=== PATIENT | female | born 1955 | race Caucasian/White ===

== ENCOUNTER 2017-02-25 10:14 | Emergency (ER) | payer BC ==
[2017-02-25 10:20] VITALS: BP 116/70
--- NOTE | 2017-02-25 11:41 | UC ---
Abdominal Pain Female HPI - HPI Summary HPI Summary: HISTORY OF DIVERTICULITIS DIAGNOSED ONE YEAR AGO. LAST TWO DAYS HAS HAD INTERMITTENT LLQ LUQ PAIN. NO DIARRHEA. NO BLOOD IN STOOL. NO VOMITING, BUT HAS HAD NAUSEA. - History of Current Complaint Chief Complaint: UCAbdominalPain Stated Complaint: STOMACH ISSUES Time Seen by Provider: 02/25/17 10:53 Hx Obtained From: Patient Onset/Duration: Gradual Onset, Lasting Days, Still Present Severity Initially: Moderate Severity Currently: Mild Pain Intensity: 7 Pain Scale Used: 0-10 Numeric Location: Discrete At: LUQ, Discrete At: LLQ Radiates: No Radiates to: LLQ Character: Cramping, Dull, Sharp Aggravating Factor(s): Nothing Alleviating Factor(s): Nothing, Bowel Movement Associated Signs and Symptoms: Positive: Negative - Risk Factors Ectopic Risk Factor: Negative Allergies/Adverse Reactions: Allergies Allergy/AdvReac Type Severity Reaction Status Date / Time No Known Allergies Allergy Verified 02/25/17 10:20 Home Medications: Home Medications Alprazolam [Xanax] 0.5 mg PO TID PRN 02/25/17 [History Confirmed 02/25/17] Diltiazem HCl [Dilt-Xr] 120 mg PO DAILY 02/25/17 [History Confirmed 02/25/17] Trazodone HCl 150 mg PO DAILY 02/25/17 [History Confirmed 02/25/17] PMH/Surg Hx/FS Hx/Imm Hx Previously Healthy: Yes - Surgical History Surgical History: Yes Surgery Procedure, Year, and Place: lumpectomy, hysterectomy - Family History Known Family History: Negative: Diabetes - Social History Occupation: Employed Full-time Lives: With Family Alcohol Use: None Substance Use Type: None Smoking Status (MU): Light Every Day Tobacco Smoker Type: Cigarettes Amount Used/How Often: 5 cig/day Length of Time of Smoking/Using Tobacco: 40 Have You Smoked in the Last Year: No Review of Systems Constitutional: Negative Skin: Negative Eyes: Negative ENT: Negative Respiratory: Negative Cardiovascular: Negative Gastrointestinal: Abdominal Pain, Nausea Genitourinary: Negative Motor: Negative Neurovascular: Negative Musculoskeletal: Negative Neurological: Negative Psychological: Negative All Other Systems Reviewed And Are Negative: Yes Physical Exam Triage Information Reviewed: Yes Appearance: Well-Appearing, No Pain Distress, Well-Nourished Vital Signs: Initial Vital Signs Temp 99.8 F 08/13/17 10:15 Pulse 83 02/25/17 10:15 Resp 18 02/25/17 10:15 BP 116/70 02/25/17 10:15 Pulse Ox 97 02/25/17 10:15 Vital Signs Reviewed: Yes Eye Exam: Normal ENT Exam: Normal ENT: Positive: Normal ENT inspection, Hearing grossly normal, Pharynx normal, TMs normal Dental Exam: Normal Neck exam: Normal Neck: Positive: Supple, Nontender, No Lymphadenopathy Respiratory Exam: Normal Respiratory: Positive: Chest non-tender, Lungs clear, Normal breath sounds Cardiovascular Exam: Normal Cardiovascular: Positive: RRR, No Murmur, Pulses Normal Abdomen Description: Positive: No Organomegaly, Soft. Negative: Nontender - LLQ , McBurney's Point Tenderness Bowel Sounds: Positive: Present Musculoskeletal Exam: Normal Neurological Exam: Normal Psychological Exam: Normal Psychological: Positive: Normal Response To Family Skin Exam: Normal Abd Pain Female Course/Dx - Differential Dx/Diagnosis Differential Diagnosis: Appendicitis, Bowel Obstruction, Constipation, Diverticulitis, Ovarian Cyst, Pancreatitis, Urinary Tract Infection Provider Diagnoses: DIVERTICULITIS Discharge - Discharge Plan Condition: Stable Disposition: HOME Prescriptions: Ciprofloxacin TAB* [Cipro 500 MG TAB*] 500 mg PO BID #14 tab Metronidazole [Flagyl 500 MG TAB] 500 mg PO TID #21 tab Patient Education Materials: Diverticulitis (ED) Referrals: [facility] [Outside] Caity Martinez PA [Primary Care Provider] -
== END 2017-02-25 11:20 | disposition home or self-care (01) ==
LOC: UCEAST 10:14
DX: K57.92 Diverticulitis of intestine, part unspecified, without perforation or abscess without bleeding (principal); Z90.710 Acquired absence of both cervix and uterus; Z87.891 Personal history of nicotine dependence
CPT/HCPCS: 81003; 99212; G0463

== ENCOUNTER 2018-02-22 16:11 | Emergency (ER) | payer BC ==
[2018-02-22 16:25] VITALS: BP 131/81
--- NOTE | 2018-02-22 16:53 | UC ---
Respiratory Complaint HPI - HPI Summary HPI Summary: 62 yo female presents with fever, sore throat, dysphagia, and cough for the last 5 days. She tells me that she returned for [place] on 02/17. Went to [address] [place] [address] on 02/18 for sore throat and cough. Per pt - they did a CXR which was normal and rx'd her Augmentin and cough syrup. She has been taking the augmentin BID since 02/18 and has had worsening symptoms. She is still febrile and reports increased pain in her throat. Has trouble swallowing her saliva due to pain. Not eating due to pain. She has not taken anything OTC for her fevers or discomfort. Denies SOB, chest pain, abdominal pain, n/v/d/c. 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 Onset/Duration: Gradual Onset Severity Initially: Severe Severity Currently: Severe Pain Intensity: 9 Pain Scale Used: 0-10 Numeric - Allergies/Home Medications Allergies/Adverse Reactions: Allergies Allergy/AdvReac Type Severity Reaction Status Date / Time No Known Allergies Allergy Verified 02/22/18 18:14 Home Medications: Home Medications Amoxicillin/Clavulanate TAB* [Augmentin TAB 875*] 875 mg PO BID 02/22/18 [ History Confirmed 02/22/18] Cholecalciferol (Vitamin D3) [Vitamin D3] 1,000 unit PO DAILY 02/22/18 [History Confirmed 02/22/18] PMH/Surg Hx/FS Hx/Imm Hx Cardiovascular History: Hypertension Psychological History: Anxiety - Surgical History Surgical History: Yes Surgery Procedure, Year, and Place: lumpectomy, hysterectomy - Family History Known Family History: Negative: Diabetes - Social History Lives: With Family Alcohol Use: Rare Substance Use Type: None Smoking Status (MU): Current Some Day Smoker Type: Cigarettes Amount Used/How Often: 5 cig/day Length of Time of Smoking/Using Tobacco: 40 Have You Smoked in the Last Year: No Review of Systems Constitutional: Fever Skin: Negative Eyes: Negative ENT: Sore Throat Respiratory: Cough Cardiovascular: Negative Gastrointestinal: Negative Neurovascular: Negative Neurological: Negative Psychological: Negative All Other Systems Reviewed And Are Negative: Yes Physical Exam - Summary Physical Exam Summary: GENERAL: Moderately ill appearing. SKIN: No rashes, sores, lesions, or open wounds. HEENT: Head: AT/NC Eyes: Conjunctiva clear without inflammation or discharge. Ears: Hearing grossly normal. TMs intact, no bulging, erythema, or edema. Nose: Nasal mucosa pink and moist. NTTP maxillary and frontal sinus. Throat: Posterior oropharynx moderate erythema and 2+ tonsillar enlargement. Severe coated yellow/white exudate on b/l tonsils. Uvula midline. No hoarse voice or muffled voice. NECK: Supple. Severe TTP about neck CHEST: Decreased breath sounds throughout. No accessory muscle use. Breathing comfortably and in no distress. CV: RRR. Without m/r/g. Pulses intact. Brisk cap refill. NEURO: Alert. CN II-XII grossly intact. PSYCH: Age appropriate behavior. Triage Information Reviewed: Yes Vital Signs: Initial Vital Signs Temp 101.5 F 02/22/18 16:20 Pulse 95 02/22/18 16:20 Resp 18 02/22/18 16:20 BP 131/81 02/22/18 16:20 Pulse Ox 97 02/22/18 16:20 Vital Signs Reviewed: Yes Diagnostic Evaluation - Laboratory O2 Sat by Pulse Oximetry: 97 Respiratory Course/Dx - Course Course Of Treatment: Given pt's fever, tachycardia, pain out of proportion to exam, and worsening symptoms despite appropriate outpatient therapy - I have advised her to go to the ED for further evaluation and treatment. She was agreeable to this and declined ambulance transfer - her will drive her. There is a suspicion for SIRS vs soft tissue neck abscess vs severe exudative pharyngitis. - Differential Dx/Diagnosis Provider Diagnoses: Fever. Sore throat Discharge - Sign-Out/Discharge Documenting (check all that apply): Patient Departure - Discharge Plan Condition: Stable Disposition: HOME-RECOMMEND TO ED Referrals: Andrew GHOSH,Asher Quevedo [Primary Care Provider] - Additional Instructions: Please go to the ER for further evaluation of your worsening sore throat despite antibiotic therapy - Billing Disposition and Condition Condition: STABLE Disposition: Home-Recommend to ED
--- NOTE | 2018-02-25 18:08 | UC ---
- Progress Note Progress Note: 02/25/2018 Pt seen on 02/22/2018 and Sent to ER to r/o tonsillar abscess. Pt D/c home w/ pain medication and no ABx. Throat culture returned Positive for Pseudomona Aeroginosa. Please call back Pt and inform Pt that Rx for Ciprofloxacin PO was sent to her pharmacy. Thank you Eryn Hong PA-C Discharge - Sign-Out/Discharge Documenting (check all that apply): Patient Departure - D/c home - Discharge Plan Condition: Stable Disposition: HOME-RECOMMEND TO ED Referrals: Andrew GHOSH,Asher Quevedo [Primary Care Provider] - Additional Instructions: Please go to the ER for further evaluation of your worsening sore throat despite antibiotic therapy - Billing Disposition and Condition Condition: STABLE Disposition: Home-Recommend to ED
== END 2018-02-22 17:10 | disposition home health service (06) ==
LOC: UCEAST 16:11
DX: R50.9 Fever, unspecified (principal); J02.9 Acute pharyngitis, unspecified; Z72.0 Tobacco use
CPT/HCPCS: 87070; 87077; 87186; 99212; G0463

== ENCOUNTER 2018-02-22 17:33 | Emergency (ER) | payer BC ==
[2018-02-22] MEDS ORDERED: Ketorolac INJ* 15 MG/ML 1 ML VIAL IV ONE (19:18)
[2018-02-22] MEDS ORDERED: NS 0.9% 1000 ML*IV.FLUID IV ONE (19:18)
--- NOTE | 2018-02-22 19:18 | ED ---
HPI Febrile Illness - HPI Summary HPI Summary: This is scrfernandoe, Gustavo Diez, documenting for attending Dr. Hola MD. A 62 y/o F presents to ED with fever onset one week ago. Pt flew on 02/18/18. She was seen at [facility] and was given Augmentin, but has not improved. Started ABX on 02/17. Associated sx: dysphagia, drooling, GONZALEZ, neck pain, throat pain, swollen lymph nodes, congestion which as resolved, dyspnea with exertion, R flank pain described as shooting. Pt hasn't been eating much due to the pain. She ate soup yesterday. Denies abd pain, CP. Pt states she is healthy otherwise, pt takes Lexapro, Trazodone, Diazepam. I, Dr. Simental, personally performed the services described in this documentation as scribed in my presence and it is both accurate and complete. 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 Onset/Duration: Started Days Ago - approx one week, Still Present Timing: Constant Initial Severity: Moderate Current Severity: Severe Pain Intensity: 10 Pain Scale Used: 0-10 Numeric Aggravating Factors: Other: - exertion Associated Signs and Symptoms: Headache, SOB - dyspnea, Stiff Neck - neck pain, Other: - dysphagia, drooling, throat pain, swollen lymph nodes, congestion, R flank pain - Allergy/Home Medications Allergies/Adverse Reactions: Allergies Allergy/AdvReac Type Severity Reaction Status Date / Time No Known Allergies Allergy Verified 02/23/18 00:01 PMH/Surg Hx/FS Hx/Imm Hx Previously Healthy: Yes Cardiovascular History: Denies: Hx Hypertension - pt denies Respiratory History: Denies: Hx Chronic Obstructive Pulmonary Disease (COPD) Opthamlomology History: Denies: Hx Legally Blind EENT History: Denies: Hx Deafness - Cancer History Hx Chemotherapy: No Hx Radiation Therapy: Yes - DONE 2-16 - Surgical History Surgery Procedure, Year, and Place: lumpectomy, hysterectomy Infectious Disease History: No Infectious Disease History: Denies: Traveled Outside the [place] in Last 30 Days - Family History Known Family History: Positive: Other - breast CA Negative: Diabetes - Social History Occupation: Retired Lives: With Family Alcohol Use: Rare Hx Substance Use: No Substance Use Type: Reports: None Hx Tobacco Use: Yes Smoking Status (MU): Current Some Day Smoker Type: Cigarettes Amount Used/How Often: 5 cig/day Length of Time of Smoking/Using Tobacco: 40 Have You Smoked in the Last Year: No Review of Systems Positive: Fever Positive: Sore Throat, Other - pos: dysphagia, drooling, swollen lymph nodes, congestion Negative: Chest Pain Positive: Other - dyspnea with SOB Negative: Abdominal Pain Positive: flank pain - R Musculoskeletal: Other - pos: neck pain Positive: Headache All Other Systems Reviewed And Are Negative: Yes Physical Exam - Summary Physical Exam Summary: Appearance: Well-appearing, Well-nourished, lying in bed comfortably Skin: Warm, dry, no obvious rash Eyes: sclera anicteric, no conjunctival pallor ENT: mucous membranes moist, severe bilateral tonsilar pharyngitis, no sign of abscess Neck: Supple, tender around neck Respiratory: Clear to auscultation, no signs of respiratory distress Cardiovascular: Normal S1, S2. No murmurs. Normal distal pulses in tibial and radial bilaterally. Abdomen: Soft, nontender, normal active bowel sounds present Musculoskeletal: Normal, Strength/ROM Intact Neurological: A&Ox3, awake and alert, mentation is normal, speech is fluent and appropriate Psychiatric: affect is normal, does not appear anxious or depressed Triage Information Reviewed: Yes Vital Signs On Initial Exam: Initial Vitals Temp Pulse Resp BP Pulse Ox 103.3 F 104 16 138/80 95 02/22/18 18:11 02/22/18 18:11 02/22/18 18:11 02/22/18 18:11 02/22/18 18:11 Vital Signs Reviewed: Yes Diagnostics - Vital Signs Vital Signs Temp Pulse Resp BP Pulse Ox 02/22/18 18:11 103.3 F 104 16 138/80 95 - Laboratory Result Diagrams: 02/22/18 19:40 02/22/18 19:40 Lab Statement: Any lab studies that have been ordered have been reviewed, and results considered in the medical decision making process. - Radiology CXR Xray Interpretation: Positive (See Comments) - IMPRESSION: #. Stigmata of obstructive lung disease. No acute pulmonary or cardiac process evident. ED physician has reviewed this radiology report. Radiology Interpretation Completed By: Radiologist - CT Neck CT CT Interpretation: Positive (See Comments) - IMPRESSION: Heterogeneous enlarged tonsils concerning for acute tonsilitis. Hypodensity in the R tonsil measuring 1x1.3 cm without peripheral enhancement representing phlegmon. Follow up is recommended to excluse development of acute abcess/fluid collection. Mucosal thickening of the L maxillary sinus with fluid level. Clinical correlation with acute sinusitis. ED provider has reviewed this report. CT Interpretation Completed By: Radiologist Re-Evaluation - Re-Evaluation 1 Re-Evaluation Time: 20:24 Change: Unchanged Comment: Discussing results with pt. Pt voiced understanding. 2 Re-Evaluation Time: 23:35 Change: Improved Comment: Pt is feeling better and is ready to go home. Will DC home. Course/Dx - Diagnoses Provider Diagnoses: Pharyngitis Discharge - Sign-Out/Discharge Documenting (check all that apply): Patient Departure - DC - Discharge Plan Condition: Improved Disposition: HOME Prescriptions: Dexamethasone TAB* [Decadron TAB*] 8 mg PO DAILY 5 Days #10 tab Morphine Sulfate 15 mg PO Q4HR PRN #12 tablet MDD 4 tabs PRN Reason: Pain Patient Education Materials: Pharyngitis (ED) Referrals: Andrew GHOSH,Asher Quevedo [Primary Care Provider] - - Billing Disposition and Condition Condition: IMPROVED Disposition: Home
[2018-02-22] MEDS ORDERED: Morphine VIAL* 4 MG/ML VIAL (1 ml vial) IV ONE (19:19)
[2018-02-22] MEDS ORDERED: Dexamethasone IV* 4 MG/ML 1 ML (4 MG) IV SLOW PU ONE (19:20)
--- NOTE | 2018-02-22 19:42 | RAD ---
INDICATION: Cough and fever. Sore throat. Tobacco use. COMPARISON: March 27, 2016 CT abdomen and October 01, 2015 chest radiograph. TECHNIQUE: Dual energy PA and routine lateral views of the chest were obtained. REPORT: Elevated lung volumes. No focal pulmonary lesion, compelling alveolar consolidation, pleural effusion, pneumothorax. The heart, pulmonary vasculature, and mediastinal contours are unremarkable. LEFT breast and gallbladder fossa level surgical clips. Unremarkable osseous structures. IMPRESSION: #. Stigmata of obstructive lung disease. No acute pulmonary or cardiac process evident.
[2018-02-22] MEDS ORDERED: Morphine INJ* 2 MG/ML 1 ML SYRINGE (TWO MG - NEW SYRINGE VERSION) ONE (19:45)
[2018-02-22 19:48] LABS: ABS Basophils 0 10^3/ul (0-0.2); ABS Eosinophils 0 10^3/ul (0-0.6); ABS Lymphocytes 1.6 10^3/ul (1.0-4.8); ABS Monocytes 0.7 10^3/ul (0-0.8); ABS Nucleated RBC 0 10^3/ul; Eosinophil % 0.3 % (0-6); Hematocrit 39 % (35-47); Hemoglobin 13.6 g/dl (12.0-16.0); Lymphocyte % 15.5 % (25-47); Mean Corpuscular HGB Conc 35 g/dl (31-36); Mean Corpuscular Hemoglobin 33 pg (27-31); Mean Corpuscular Volume 95 fL (80-97); Mean Platelet Volume 7.5 um3 (7.4-10.4); Nucleated Red Blood Cells % 0.2; Platelet Count 213 10^3/ul (150-450); Red Blood Count 4.11 10^6/ul (4.00-5.40); Red Cell Distribution Width 13 % (10.5-15); White Blood Count 10.3 10^3/ul (3.5-10.8)
[2018-02-22 20:06] LABS: EGFR Non-African American 72.4 (>60)
[2018-02-22] MEDS ORDERED: Iohexol 300* (CONTRAST) 10 ML SDV IV ONE (20:33)
[2018-02-22] MEDS ORDERED: Morphine ORAL.SOLN 10 mg* 2 MG/ML UDC 5 ml PO ONE (21:10)
[2018-02-22] MEDS ORDERED: Ondansetron ODT TAB* 4 MG SL ONE (21:11)
--- NOTE | 2018-02-22 21:51 | RAD ---
INDICATION: Severe neck throat pain and fever, evaluate for abscess. COMPARISON: There are no relevant prior studies available for comparison. TECHNIQUE: A CT scan of the neck was performed with intravenous contrast following intravenous injection of 50 ml of Omnipaque 300 nonionic contrast. Contiguous axial sections were obtained from the skull base through the lung apices. Images were reconstructed in the coronal and sagittal planes. FINDINGS: The airway is patent. The epiglottis and aryepiglottic folds appear within normal limits. No retropharyngeal soft tissue swelling is noted. The tonsils are enlarged and heterogeneous in density right greater than left. There is a 1.3 x 1.0 cm ill-defined hypodense area in the right tonsil without peripheral enhancement. No significant enlarged nodes are seen. The parotid and submandibular glands appear to be within normal limits. The thyroid gland appears normal. The lung apices appear clear. There is mild to moderate centrilobular emphysematous change present. The frontal ethmoid right maxillary and sphenoid sinuses appear clear. There is mucosal thickening within the left maxillary sinus and a moderate size air-fluid level within the left maxillary sinus. The mastoid air cells appear clear. No significant focal osseous abnormality is seen. IMPRESSION: 1. ENLARGED HETEROGENEOUS TONSILS SUGGESTIVE OF ACUTE TONSILLITIS. THERE IS ILL-DEFINED HYPODENSE AREA IN THE RIGHT TONSIL WITHOUT DEFINITE ABSCESS. FOLLOW-UP IS RECOMMENDED TO ITS TO EXCLUDE DEVELOPMENT OF AN ACUTE ABSCESS COLLECTION. 2. LEFT MAXILLARY SINUS MUCOSAL THICKENING WITH AIR-FLUID LEVEL POSSIBLY REPRESENTING ACUTE SINUSITIS.
[2018-02-22] MEDS ORDERED: NS 0.9% 1000 ML* 1,000 ML IV ONE (21:59)
[2018-02-22 23:50] VITALS: BP 136/78
== END 2018-02-22 23:57 | disposition home or self-care (01) ==
LOC: ED 17:33
DX: J02.9 Acute pharyngitis, unspecified (principal); F17.210 Nicotine dependence, cigarettes, uncomplicated
CPT/HCPCS: 36415; 70491; 71046; 80053; 83605; 85025; 86308; 96361; 96374; 96375; 99283; A9270-GY; J1100; J1885; J2270; Q9967

== ENCOUNTER 2018-02-28 12:39 | Inpatient (IN) | payer BC ==
--- NOTE | 2018-02-28 13:51 | ED ---
Complex/Multi-Sys Presentation - HPI Summary HPI Summary: This is Asher Barron documenting for attending Marcelino Fuentes MD. Pt is a 62 y/o F presents to ED c/o sore throat and nausea. Assoc Sx: abd pain, nausea, fever, fatigue, sore throat, decreased PO intake, back pain, dizziness. notes calling her at 0900 this AM and he noted she was very confused and still in bed which is unusual. at bedside, notes she was able to walk today but was extremely fatigued afterwards. She was treated for a bad throat infection ~1 week ago for which she received ABX for treatment. PMHx: HTN. SHx: Few cigarettes a day. I, Dr. Fuentes, personally performed the services described in this documentation as scribed in my presence and it is both accurate and complete. - History Of Current Complaint Chief Complaint: EDGeneral Hx Obtained From: Patient Onset/Duration: Gradual Onset, Still Present Timing: Constant Associated Signs And Symptoms: Positive: Other - POS: abd pain, fever, fatigue, sore throat, decreased PO intake, back pain, dizziness. - Allergies/Home Medications Allergies/Adverse Reactions: Allergies Allergy/AdvReac Type Severity Reaction Status Date / Time No Known Allergies Allergy Verified 02/28/18 12:45 Home Medications: Home Medications ALPRAZolam TAB* [Xanax TAB*] 0.5 mg PO TID PRN 02/28/18 [History Confirmed 02/28] dilTIAZem HCl [Diltiazem HCl] 120 mg PO TID 02/28/18 [History Confirmed 02/28/18 ] traZODone TAB* [Desyrel TAB*] 150 mg PO BEDTIME 02/28/18 [History Confirmed ] PMH/Surg Hx/FS Hx/Imm Hx Endocrine/Hematology History: Denies: Hx Diabetes Cardiovascular History: Denies: Hx Hypertension - pt denies Respiratory History: Denies: Hx Chronic Obstructive Pulmonary Disease (COPD) History: Denies: Hx Renal Disease Sensory History: Denies: Hx Legally Blind, Hx Deafness Opthamlomology History: Denies: Hx Legally Blind - Cancer History Hx Chemotherapy: No Hx Radiation Therapy: Yes - DONE 2-16 - Surgical History Surgery Procedure, Year, and Place: lumpectomy, hysterectomy Infectious Disease History: No Infectious Disease History: Denies: Traveled Outside the [place] in Last 30 Days - Family History Known Family History: Positive: Other - breast [place] Negative: Diabetes - Social History Occupation: Retired Lives: With Family Alcohol Use: Rare Hx Substance Use: No Substance Use Type: Reports: None Hx Tobacco Use: Yes Smoking Status (MU): Current Some Day Smoker Type: Cigarettes Amount Used/How Often: 5 cig/day Length of Time of Smoking/Using Tobacco: 40 Have You Smoked in the Last Year: No Review of Systems Positive: Fever, Fatigue. Negative: Chills, Skin Diaphoresis Negative: Photophobia, Blurred Vision, Diplopia, Drainage, Erythema Positive: Sore Throat. Negative: Epistaxis, Dental Pain, Ear Ache, Nasal Discharge Negative: Palpitations, Chest Pain Negative: Shortness Of Breath, Cough Positive: Abdominal Pain, Nausea. Negative: Vomiting, Diarrhea Negative: burning, dysuria, discharge, frequency, flank pain, hematuria, incontinence, pain, urgency Negative: Arthralgia, Myalgia, Decreased ROM, Edema Negative: Rash, Bruising Negative: Headache, Weakness, Paresthesia, Numbness, Syncope, Slurred Speech Negative: Anxious, Depressed All Other Systems Reviewed And Are Negative: Yes Physical Exam - Summary Physical Exam Summary: Constitutional: Well-developed, Well-nourished, Alert. (-) Distressed Skin: Warm, Dry HENT: Normocephalic; Atraumatic Eyes: Conjunctiva normal Neck: Musculoskeletal ROM normal neck. (-) JVD, (-) Stridor, (-) Tracheal deviation Cardio: Rhythm regular, rate normal, Heart sounds normal; Intact distal pulses; The pedal pulses are 2+ and symmetric. Radial pulses are 2+ and symmetric. (-) Murmur Pulmonary/Chest wall: Effort normal. (-) Respiratory distress, (-) Wheezes, (-) Rales Abd: Soft, (-) epigastric tenderness, (-) Distension, (-) Guarding, (-) Rebound Musculoskeletal: (-) Edema Lymph: (-) Cervical adenopathy Neuro: Alert, Oriented x3 Psych: Mood and affect Normal Triage Information Reviewed: Yes Vital Signs On Initial Exam: Initial Vitals Temp Pulse Resp BP Pulse Ox 98.2 F 85 18 143/80 92 02/28/18 12:40 02/28/18 12:40 02/28/18 12:40 02/28/18 12:40 02/28/18 12:40 Vital Signs Reviewed: Yes Procedures - Lumbar Puncture Midline Position: Lateral Decubitus - L Aseptic Technique: Local Anesthesia Anesthesia Used: 1.0% Lido Spinal Needle Used: 22 Gauge - 3.5 inch Lumbar Puncture Note: Opening pressure too low to record, fluid appeared cloudy, sterile prep w iodine. Diagnostics - Vital Signs Vital Signs Temp Pulse Resp BP Pulse Ox 02/28/18 12:40 98.2 F 85 18 143/80 92 - Laboratory Result Diagrams: 03/01/18 06:36 03/01/18 06:36 Lab Statement: Any lab studies that have been ordered have been reviewed, and results considered in the medical decision making process. - Radiology CXR Xray Interpretation: No Acute Changes - IMPRESSION: No active cardiopulmonary disease noted. Radiology Interpretation Completed By: Radiologist - Report has been reviewed by provider and radiologist. - CT Brain CT CT Interpretation: Positive (See Comments) - IMPRESSION: INCREASED DENSITY WITHIN THE BASILAR ARTERY CONSISTENT WITH EITHER CALCIFIC PLAQUE OR THROMBUS. RECOMMEND OBTAINING EITHER AN MRI AND MRA OF THE BRAIN WITHOUT CONTRAST OR CT ANGIOGRAM OF THE HEAD AND NECK FOR FURTHER EVALUATION. AIR-FLUID LEVEL WITHIN THE LEFT MAXILLARY SINUS WHICH MAY INDICATE SINUSITIS IN THE APPROPRIATE CLINICAL SETTING. CT Interpretation Completed By: Radiologist - Report has been reviewed by provider and radiologist. Head CTA CT Interpretation: No Acute Changes - IMPRESSION: NO SIGNIFICANT CT ANGIOGRAPHIC ABNORMALITIES. SPECIFICALLY, NO VERTEBROBASILAR ABNORMALITIES TO ACCOUNT FOR THE CT FINDINGS. CT Interpretation Completed By: Radiologist - Report has been reviewed by provider and radiologist. - EKG 1420 Cardiac Rate: NL - 76 bpm EKG Rhythm: Sinus Rhythm ST Segment: Normal Ectopy: None Complex Multi-Symp Course/Dx Course Of Treatment: Provider saw pt regarding treatment and administered meds. She is going to see ortho surgery regarding her RLE break. Provider attempted calling for consent of lumbar puncture but failed to reach someone on the phone. He is receiving written consent from patient to recieve treatment. - Diagnoses Provider Diagnoses: Meningitis, Altered mental status Discharge - Sign-Out/Discharge Documenting (check all that apply): Patient Departure - Discharge Plan Condition: Stable Disposition: ADMITTED TO [facility]
--- NOTE | 2018-02-28 15:21 | RAD ---
Indication: Confusion. Single Frontal view of the chest performed at 1507 hours was reviewed. Comparison is made with previous exam dated February 22, 2018. No mediastinal shift is noted. Heart is of normal size and configuration. Lung velez appear clear. IMPRESSION: NO ACTIVE CARDIOPULMONARY DISEASE IS NOTED.
--- NOTE | 2018-02-28 15:56 | RAD ---
INDICATION: Altered mental status. COMPARISON: There are no prior studies available for comparison. TECHNIQUE: Contiguous axial sections of the brain were obtained from the skull base to the vertex without contrast. FINDINGS: The ventricles, cisterns and sulci are within normal limits. No significant focal abnormality or mass effect is seen. There is no evidence for hemorrhage. There is increased density within the basilar artery on 2 images which may be related to calcified plaque or possibly thrombus. There is an air-fluid level within the left maxillary sinus. The visualized paranasal sinuses and mastoid air cells otherwise appear clear. The results of this exam were discussed with the referring clinician. IMPRESSION: 1. INCREASED DENSITY WITHIN THE BASILAR ARTERY CONSISTENT WITH EITHER CALCIFIC PLAQUE OR THROMBUS. RECOMMEND OBTAINING EITHER AN MRI AND MRA OF THE BRAIN WITHOUT CONTRAST OR CT ANGIOGRAM OF THE HEAD AND NECK FOR FURTHER EVALUATION. 2. AIR-FLUID LEVEL WITHIN THE LEFT MAXILLARY SINUS WHICH MAY INDICATE SINUSITIS IN THE APPROPRIATE CLINICAL SETTING.
[2018-02-28] MEDS ORDERED: Ondansetron INJ* 2 MG/ML VIAL IV ONE (15:59)
[2018-02-28] MEDS ORDERED: Acetaminophen TAB* 325 MG PO ONE ×2 (16:00→19:59)
[2018-02-28] MEDS ORDERED: NS 0.9% 1000 ML* 1,000 ML IV ONE (16:00)
[2018-02-28] MEDS ORDERED: Metoprolol Tartrate IV* 1 MG/ML 5 ML VIAL IV ONE (16:02)
[2018-02-28 16:05] LABS: Hematocrit 42 % (35-47); Hemoglobin 14.7 g/dl (12.0-16.0); Mean Corpuscular HGB Conc 35 g/dl (31-36); Mean Corpuscular Hemoglobin 32 pg (27-31); Mean Corpuscular Volume 93 fL (80-97); Mean Platelet Volume 7.4 um3 (7.4-10.4); Platelet Count 328 10^3/ul (150-450); Red Blood Count 4.55 10^6/ul (4.00-5.40); Red Cell Distribution Width 13 % (10.5-15); White Blood Count 12.9 10^3/ul (3.5-10.8)
[2018-02-28 16:22] LABS: EGFR Non-African American 71.4 (>60)
[2018-02-28] MEDS ORDERED: Iohexol 350* (CONTRAST) 500 ML MDV IV ONE (16:38)
[2018-02-28 17:03] LABS: ABS Basophils 0 10^3/ul (0-0.2); ABS Eosinophils 0 10^3/ul (0-0.6); ABS Lymphocytes 2.2 10^3/ul (1.0-4.8); ABS Monocytes 1.6 10^3/ul (0-0.8); ABS Neutrophils 9.1 10^3/ul (1.5-7.7); ABS Nucleated RBC 0 10^3/ul; Eosinophil % 0 % (0-6); Lymphocyte % 17.3 % (25-47); Nucleated Red Blood Cells % 0.1
[2018-02-28 17:05] LABS: Urine Appearance Clear; Urine Blood 1+ (Negative); Urine Color Yellow; Urine Ketones 1+ (Negative); Urine Protein 1+(30 mg/dL) (Negative); Urine Red Blood Cell 3+(>10/hpf) (Absent); Urine Specific Gravity 1.021 (1.010-1.030); Urine Urobilinogen Negative (Negative); Urine White Blood Cell Trace(0-5/hpf) (Absent)
--- NOTE | 2018-02-28 17:25 | RAD ---
INDICATION: Altered mental status COMPARISON: CT brain February 28, 2018 TECHNIQUE: Axial source images were acquired with coronal and sagittal reconstructions. CT angiographic technique was utilized with injection of 80 mL Omnipaque 350. FINDINGS: Aortic arch: There are mild atherosclerotic changes of the arch and the origins of the great vessels arising from the arch. Right carotid: The common carotid artery, carotid bifurcation, extracranial portions of the internal carotid artery, carotid artery at the skull base, carotid siphon, and carotid termination appear widely patent. There is minimal plaque formation at the bifurcation. Left carotid:The common carotid artery, carotid bifurcation, extracranial portions of the internal carotid artery, carotid artery at the skull base, carotid siphon, and carotid termination appear widely patent. There is minimal plaque formation at the bifurcation Right middle and anterior cerebral arteries: There are no CT angiographic abnormalities of the middle or anterior cerebral arteries. Left middle and anterior cerebral arteries: There are no CT angiographic abnormalities of the middle or anterior cerebral arteries Right vertebral: The CT angiographic appearance of the vertebral artery is normal. Left vertebral: The CT angiographic appearance of the vertebral artery is normal. The left vertebral artery is dominant Basilar artery: The basilar artery and basilar tip appear normal. Posterior cerebral arteries: The distal distribution of the right and left posterior cerebral arteries is normal. Canal [place] of [place]: The CT angiographic appearance of the pic[place]une of [place] is normal. Source images show no evidence of mass or adenopathy within the neck. There are no focal brain parenchymal abnormalities or abnormal areas of enhancement. IMPRESSION: NO SIGNIFICANT CT ANGIOGRAPHIC ABNORMALITIES. SPECIFICALLY, NO VERTEBROBASILAR ABNORMALITIES TO ACCOUNT FOR THE CT FINDINGS. CPT II Codes: 3100F PQRS
[2018-02-28] MEDS ORDERED: Lidocaine 1% INJ* 10 MG/ML 30 ML SDV ONE (19:03)
[2018-02-28] MEDS ORDERED: Vancomycin(*) 1,250 MG in NS 0.9% 250 ML* 250 ML IVPB ONE (19:35)
[2018-02-28] MEDS ORDERED: cefTRIAXone(*) 2 GM in NS 0.9% 100 ML* 100 ML IVPB ONE (19:35)
[2018-02-28 19:41] LABS: Body Fluid Source Cerebral Spinal
[2018-02-28] MEDS ORDERED: Acetaminophen TAB* 325 MG ONE (19:58)
[2018-02-28] MEDS ORDERED: Ondansetron ODT TAB* 4 MG PO ONE (20:11)
[2018-02-28] MEDS ORDERED: NS 0.9% 1000 ML* 1,000 ML IV SCH (20:45)
[2018-02-28] MEDS ORDERED: Cefepime 2 GM in Dextrose(*) 2 GM/50 ML BAG IV SCH ×2 (21:00→22:30)
[2018-02-28] MEDS ORDERED: Cefepime 2 GM in Dextrose(*) 2 GM/50 ML BAG IV ONE (21:02)
[2018-02-28 21:18] LABS: Procalcitonin < 0.1 ng/mL (<0.6)
[2018-02-28] MEDS ORDERED: Vancomycin per Pharmacy* NOTE FOLLOW UP PRN (21:48)
[2018-02-28] MEDS ORDERED: Vancomycin(*) 1,000 MG in NS 0.9% 250 ML* 250 ML IVPB SCH (22:00)
--- NOTE | 2018-02-28 23:11 | HP ---
CC: Dr. Morales* HISTORY AND PHYSICAL: DATE OF ADMISSION: 02/28/18 PRIMARY CARE PROVIDER: Dr. Morales. CHIEF COMPLAINT: Altered mental status. HISTORY OF PRESENT ILLNESS: Ms. Jeff is a 62-year-old female who has a history of hypertension and palpitations as well as what appears to be anxiety, who presents to the emergency room with altered mental status. The patient's story began a couple of weeks ago. Her provides all of the history as the patient states "I don't know" to every single question. He states that a couple of weeks ago, she was in [place]. He states that she was going in and out of air condition to the high heat. When she returned home from [place], she had a sore throat. She went to [facility] and was started on antibiotics at that point. The patient then presented to [facility] on 05/02 due to continued throat pain. At that point, she was sent to the emergency room. She was given steroids and continued on the antibiotic that was started previously. The patient essentially had no improvement within her throat pain. She states that it is very sore. She has had some nausea. She does at one point tell me that she had a severe headache today. She denies any light sensitivity or sound sensitivity. At approximately 9 a.m., the patient's called her from work. He noted that she was saying "I don't know" to every question that he asked. The patient's daughter checked on her later on the morning and she was noted to be quite confused and at that point, the daughter called the patient's , who came home, noted her to still be very confused and therefore, ultimately this evening brought her to the emergency room for evaluation. The patient did have a fever last week and a fever this evening. PAST MEDICAL HISTORY: 1. Hypertension. 2. Palpitation. 3. Anxiety. PAST SURGICAL HISTORY: Cholecystectomy. MEDICATIONS: It is unclear how accurate this list is: 1. Vitamin D3 1000 units p.o. daily. 2. Augmentin 875 mg p.o. b.i.d. 3. Xanax 0.5 mg p.o. t.i.d. p.r.n. anxiety. 4. Trazodone 150 mg p.o. q.h.s. 5. Decadron 8 mg p.o. daily. 6. Diltiazem 120 mg p.o. t.i.d. 7. Cipro 500 mg p.o. b.i.d. 8. Morphine sulfate 15 mg p.o. q.4 hours p.r.n. pain. ALLERGIES: None. FAMILY HISTORY: Mom and dad are both living. The patient states that her mom has a cerebral aneurysm, but then states she does not know. SOCIAL HISTORY: The patient does admit to smoking a couple of cigarettes per day. She was previously a heavier smoker. She believes she smoked for approximately 50 years. She denies any alcohol use. 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 She is . She has 4 children. Her , Asher, is her health care proxy. REVIEW OF SYSTEMS: Unobtainable from the patient due to her significant confusion. PHYSICAL EXAMINATION GENERAL: The patient is a well-developed middle-aged female, seen lying flat on her back in the stretcher, in no acute distress. VITAL SIGNS: Blood pressure 132/87, pulse 67, respirations 22, temp 100.5, O2 sat 92% on room air. HEENT: Pupils are equal and round. Extraocular muscles were intact. Oropharynx is moist. The patient has significant whitish exudate noted easiest on the left tonsil. There is BB-sized adenopathy in the left submandibular and cervical region. There is no supraclavicular adenopathy. PULMONARY: Lungs are clear to auscultation anteriorly. CARDIAC: Normal S1, S2. Regular rate and rhythm. I do not appreciate any murmurs. There is no lower extremity edema. ABDOMEN: Bowel sounds are present. Abdomen is soft, nontender, nondistended. MUSCULOSKELETAL: The patient moves all 4 extremities symmetrically. NEUROLOGIC: Cranial nerves II through XII are grossly intact. Sensation is intact to light touch throughout. Strength is 5/5 and symmetric in both upper and lower extremities bilaterally. SKIN: Warm and dry. PSYCH: The patient is pleasantly confused. LABORATORY DATA: WBC 12.9, hemoglobin 14.7, hematocrit 42, platelets 328. Sodium 130, potassium 3.8, chloride 92, CO2 28, BUN 23, creatinine 0.81, glucose 113, lactic acid 0.8, calcium 8.7. Bilirubin 0.6, AST 16, ALT 35, alk phos 100, ammonia 41. Troponin 0.01. CRP pending. Albumin 3.8. Urinalysis reveals a specific gravity of 1.021, 1+ protein, 1+ ketones, 1+ blood, 3+ RBCs. Serum alcohol less than 10. CSF analysis reveals cloudy fluid with a white blood cell count of 805, RBCs of 711, neutro 40, lymphocytes 33, CSF glucose 45, CSF total protein 251. CT brain: Increased density within the basilar artery consistent with either calcific plaque or thrombus. Recommend obtaining either an MRI and MRA of the brain without contrast or CT angiogram of the head and neck for further evaluation. Air fluid levels in the left maxillary sinus which may indicate sinusitis in the appropriate clinical setting. CTA head and neck reveals no significant CT angiographic abnormalities specifically, no vertebrobasilar abnormalities to account for the CT findings. Chest x-ray, no active cardiopulmonary disease. EKG reveals normal sinus rhythm without any acute ST, T-wave abnormalities. ASSESSMENT AND PLAN: Ms. Jeff is a 62-year-old female with history of what appears to be hypertension, palpitations, and anxiety, who presents to the emergency room with complaints of altered mental status and persistent throat pain. 1. Altered mental status. I suspect this is secondary to meningitis. The patient's lumbar puncture reveals cloudy fluid. It does appear to have been somewhat of a blood tap as there were 711 red cells and 805 white blood cells. The patient has a low normal CSF glucose and an elevated CSF total protein. This could represent either bacterial or viral meningitis. Given the patient's Pseudomonas pharyngitis, I am going to go ahead and continue vancomycin and change from ceftriaxone to cefepime for coverage as this could be a Pseudomonas meningitis. She will also continue on acyclovir for now. Infectious Disease physician is unavailable at this time. Tomorrow, a phone consultation with ID would likely be beneficial. We will await the culture from the CSF. CSF gram stain shows no organisms and 4+ neutrophils. 2. Pseudomonas pharyngitis. The patient has a throat culture from 02/22/18 that is growing Pseudomonas aeruginosa. It appears the patient was on Augmentin , but perhaps changed to Cipro. The patient and her really have no clue as to what antibiotic she is actually taking at this point. I am going to stop both the Augmentin and the Cipro and she will be treated with cefepime for the meningitis and this will also cover the pharyngitis. I will send off a HIV test given the throat culture. 3. The patient's blood pressure is under fair control currently. I will continue her usual dose of diltiazem. 4. DVT prophylaxis. According to the Adult Thrombosis Prophylaxis Risk Factor Assessment Guide, the patient has a total risk factor score of 2 making her moderate risk. Heparin 5000 units subcutaneous q.8 hours will be initiated tomorrow morning given the lumbar puncture being done this evening. 5. Code status is full. TIME SPENT: Sixty five minutes were spent admitting this patient. [id number]/[facility] #: [id number] MTDD
[2018-03-01] MEDS: Vancomycin(*) 1,000 MG in NS 0.9% 250 ML* 250 ML IVPB SCH ×4 (00:10→23:47)
[2018-03-01] MEDS: Ondansetron INJ* 2 MG/ML VIAL IV PRN (00:36)
[2018-03-01] MEDS: Morphine INJ* 2 MG/ML 1 ML SYRINGE (TWO MG - NEW SYRINGE VERSION) IV PRN (00:49)
[2018-03-01] MEDS: ACYCLOVIR IVPB SCH ×5 (02:17→22:22)
[2018-03-01] MEDS: NS 0.9% IVPB SCH ×5 (02:17→22:22)
[2018-03-01] MEDS ORDERED: Morphine VIAL* 4 MG/ML VIAL (1 ml vial) IV PRN (02:20)
[2018-03-01] MEDS: Lidocaine 2% VISCOUS* 15 ML UDC SWISH SWAL PRN ×2 (04:18→22:04)
[2018-03-01] MEDS ORDERED: Ketorolac INJ* 15 MG/ML 1 ML VIAL IV PUSH ONE (05:26)
[2018-03-01] MEDS: Heparin VIAL(*) 5000 UNITS/ML VIAL (FIVE THOUSAND) SUBCUT SCH ×3 (06:09→22:08)
[2018-03-01 06:49] LABS: ABS Basophils 0 10^3/ul (0-0.2); ABS Eosinophils 0 10^3/ul (0-0.6); ABS Lymphocytes 1.8 10^3/ul (1.0-4.8); ABS Neutrophils 8.6 10^3/ul (1.5-7.7); ABS Nucleated RBC 0 10^3/ul; Eosinophil % 0.2 % (0-6); Hematocrit 38 % (35-47); Hemoglobin 13.7 g/dl (12.0-16.0); Lymphocyte % 15.9 % (25-47); Mean Corpuscular HGB Conc 36 g/dl (31-36); Mean Corpuscular Hemoglobin 33 pg (27-31); Mean Corpuscular Volume 92 fL (80-97); Mean Platelet Volume 7.3 um3 (7.4-10.4); Nucleated Red Blood Cells % 0; Platelet Count 295 10^3/ul (150-450); Red Blood Count 4.19 10^6/ul (4.00-5.40); Red Cell Distribution Width 13 % (10.5-15); White Blood Count 11.5 10^3/ul (3.5-10.8)
[2018-03-01 07:09] LABS: EGFR Non-African American 130.6 (>60)
--- NOTE | 2018-03-01 08:02 | RAD ---
INDICATION: Right flank abdominal pain. COMPARISON: Comparison is made with a prior CT of the abdomen and pelvis from March 27, 2016. TECHNIQUE: Frontal supine films of the abdomen were obtained. FINDINGS: The small bowel and colon appear nondistended. There are several surgical clips in the right upper quadrant consistent with a prior cholecystectomy. No renal calculi are seen. There are several calcific densities which project bilaterally over the pelvis. IMPRESSION: 1. NO EVIDENCE FOR BOWEL OBSTRUCTION. 2. NO RENAL CALCULI ARE SEEN. THERE ARE CALCIFICATIONS WHICH PROJECT BILATERALLY OVER THE PELVIS. THESE ARE NONSPECIFIC ALTHOUGH LIKELY REPRESENT PHLEBOLITHS. A URETERAL CALCULUS CANNOT BE EXCLUDED. IF THE PATIENT'S SYMPTOMS PERSIST CONSIDER A CT OF THE ABDOMEN AND PELVIS WITHOUT CONTRAST FOR FURTHER EVALUATION.
[2018-03-01] MEDS ORDERED: Potassium Chloride LIQUID* 20 MEQ PACKET PO ONE (09:00)
[2018-03-01] MEDS ORDERED: Cefepime 2 GM in Dextrose(*) 2 GM/50 ML BAG IV SCH (09:00)
[2018-03-01] MEDS: NS 0.9% 1000 ML* 1,000 ML IV SCH (10:31)
[2018-03-01] MEDS: Diltiazem TAB* 60 MG PO SCH ×3 (10:35→22:02)
--- NOTE | 2018-03-01 10:56 | PN ---
Subjective Date of Service: 03/01/18 Interval History: Pt is a very poor historian, disoriented. c/o pain all over, headache. 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 Unable to give me her age. Year :"1999?.." c/o nausea and a second later said that she is not nauseated. As per d/w RN-pt had been refusing food and PO meds c/o sore throat"for a long time" Objective Active Medications: Acetaminophen (Tylenol Tab*) 650 mg PO Q4H PRN PRN Reason: PAIN Diltiazem HCl (Cardizem Tab*) 120 mg PO TID [facility] Last Admin: 03/01/18 10:35 Dose: 120 mg Heparin Sodium (Porcine) (Heparin Vial(*)) 5,000 units SUBCUT Q8HR [facility] Last Admin: 03/01/18 06:09 Dose: 5,000 units Acyclovir Sodium 520 mg/ (Sodium Chloride) 110.4 mls @ 127.38 mls/hr IVPB Q8H [facility] Last Admin: 03/01/18 02:55 Dose: 127.38 mls/hr Sodium Chloride (Ns 0.9% 1000 Ml*) 1,000 mls @ 100 mls/hr IV PER RATE [facility] Last Admin: 03/01/18 10:31 Dose: 100 mls/hr Sodium Chloride (Ns 0.9% 1000 Ml*) 1,000 mls @ 100 mls/hr IV PER RATE [facility] Vancomycin HCl 1,000 mg/ (Sodium Chloride) 250 mls @ 166.667 mls/hr IVPB 0000, 0800,1600 [facility] Last Admin: 03/01/18 08:15 Dose: 166.667 mls/hr Cefepime HCl (Maxipime 2 Gm In Dextrose Duplex (*)) 2 gm in 50 mls @ 100 mls/ hr IV Q12H [facility] Last Admin: 03/01/18 10:32 Dose: 100 mls/hr Potassium Chloride (Potassium Chloride 20 Meq/100 Ml Ivpremix*) 20 meq in 100 mls @ 50 mls/hr IV Q2H [facility] Stop: 03/01/18 14:59 Lidocaine (Xylocaine 2% Viscous*) 15 ml SWISH SWAL Q3H PRN PRN Reason: THROAT PAIN Last Admin: 03/01/18 04:18 Dose: 15 ml Morphine Sulfate (Morphine Inj ((Syringe))*) 2 mg IV Q4H PRN PRN Reason: PAIN - MILD Last Admin: 03/01/18 00:49 Dose: 2 mg Ondansetron HCl (Zofran Inj*) 4 mg IV Q6H PRN PRN Reason: NAUSEA Last Admin: 03/01/18 00:36 Dose: 4 mg Oxycodone/Acetaminophen (Percocet 5/325 Tab*) 1 tab PO Q4H PRN PRN Reason: PAIN Pharmacy Consult (Vancomycin Per Pharmacy*) 1 note FOLLOW UP . PRN PRN Reason: PER PROTOCOL Pharmacy Profile Note (Vancomycin Trough Check) 1 note FOLLOW UP 0800 ONE Stop: 03/02/18 08:01 Vital Signs - 8 hr 03/01/18 03/01/18 03/01/18 02:58 03:03 03:16 Temperature 98.6 F Pulse Rate 69 Respiratory 20 20 16 Rate Blood Pressure 148/78 (mmHg) O2 Sat by Pulse 93 Oximetry 03/01/18 03/01/18 03/01/18 04:23 07:36 08:00 Temperature 98.4 F Pulse Rate 79 Respiratory 18 17 18 Rate Blood Pressure 144/87 (mmHg) O2 Sat by Pulse 93 Oximetry Oxygen Devices in Use Now: None Appearance: 62 yo F in nAD, oriented to self and location Eyes: No Scleral Icterus, PERRLA Ears/Nose/Mouth/Throat: NL Teeth, Lips, Gums, Mucous Membranes Moist, - - oropharynx with marked inflammation. b/l pharyngeal tonsills with white/ necrotic like tissue and what appears to be tissue deficit after evacuated abscess in left tonsil Neck: NL Appearance and Movements; NL JVP, Trachea Midline Respiratory: Symmetrical Chest Expansion and Respiratory Effort, Clear to Auscultation Cardiovascular: NL Sounds; No Murmurs; No JVD, RRR Abdominal: NL Sounds; No Tenderness; No Distention Lymphatic: No Cervical Adenopathy Extremities: No Edema, No Clubbing, Cyanosis Skin: No Rash or Ulcers, No Nodules or Sclerosis Neurological: NL Muscle Strength and Tone, - - no neck stiffness, no focal deficit Result Diagrams: 03/01/18 06:36 03/01/18 06:36 Microbiology and Other Data: Microbiology 02/28/18 19:37 CSF Gram Stain (Tube 3) - Final Cerebral Spinal Fluid Assess/Plan/Problems-Billing Assessment: 62 yo F with h/o HTN and recent h/o pseudomonas pharyngitis tx with Cipro/Augmentin/Decadron presents with AMS - Patient Problems (1) Altered mental state Comment: CSF shows >800 WBC and protein >200 consistent with menigitis and likely encephalitis given AMS. cont neurochecks Q4H. MRI brain ordered to r/o abscess Unfortunately blood cx were not obtained at admission and will be ordered now Appreciate Dr. Amado's consult. Given recent tx with Decadron for pharyngitis HSV probable, but cx are pending. CSF cryptococcus antigen pending. Spoke with Dr. Patel from [facility] (ID specialist) who recommended adding ampicillin for Listeria coverage. so far pt had been hemodynamically stable and there is no need for emergent transfer, but pt was placed on a waiting list for transfer to [facility]. Both [facility] and [place] are on diversion. cont Cefepime/Vanc/Acyclovir/ampicillin. Will transfer to ICU for closer monitoring (2) Pharyngitis Comment: still significant. Cont Cefepime(cx from 02/22/18 grew Pseudomonas) cont Viscous Lido topically pt has odynophagia due to pharyngitis and refuses to eat. will place pt on ful liquid diet Spoke with ENT(Dr. Alfaro) who recommended MRI neck to r/o abscess, but otherwise pt is on full antibiotic coverage. (3) HTN (hypertension) Comment: controlled, cont home Cardizem (4) DVT prophylaxis Comment: HSQ Status and Disposition: inpatient
[2018-03-01] MEDS ORDERED: KCL 20 MEQ/100 ML IVPREMIX* 20 MEQ/100 ML BAG IV SCH (11:00)
[2018-03-01] MEDS ORDERED: Cefepime(*) 2 GM in D5W 100 ML BAG* 100 ML IVPB SCH (12:00)
[2018-03-01] MEDS: Pantoprazole IV* 40 MG IV SCH (12:49)
[2018-03-01] MEDS: levETIRAcetam IV* 750 MG in NS 0.9% 100 ML* 100 ML IVPB SCH (14:27)
[2018-03-01] MEDS: Ampicillin IV* 2 GM in NS 0.9% 100 ML* 100 ML IVPB SCH ×4 (14:35→23:40)
[2018-03-01] MEDS: KCL 20 MEQ/100 ML IVPREMIX* 20 MEQ/100 ML BAG IV SCH ×2 (16:06→18:18)
[2018-03-01] MEDS: Acetaminophen TAB* 325 MG PO PRN (18:36)
--- NOTE | 2018-03-01 19:35 | CONS ---
CONSULTATION REPORT: DATE OF CONSULT: 03/01/18 PATIENT OF: Dr. Morales and Dr. Rodríguez HISTORY OF PRESENT ILLNESS: This is a 62-year-old woman I am asked to evaluate for altered mental status. The ER called me last evening with a history of some confusion and slurred speech and was concerned about a stroke, but there was fever and I had recommended spinal tap and as this is going to take a while , treating empirically at least with acyclovir at that point. Her history begins perhaps a couple of weeks ago when she developed sore throat, started on antibiotics and then because of continued throat pain, was seen at urgent care and sent to the ER. She was given steroids and continued on antibiotics, but without any improvement. She has had some nausea and some headache that began within the past day or two. Since yesterday morning at about 9 or perhaps a little earlier, she became confused and was answering that "I don't know" to most questions and at times her sentences seemed a little jumbled, although there was no nonsense words. She had a fever last week and upon presentation to the ER. PAST MEDICAL HISTORY: She has a past medical history of hypertension, palpitation, anxiety, status post cholecystectomy. MEDICATIONS: She is apparently on: 1. Trazodone 150 mg at bedtime. 2. Xanax 0.5 t.i.d. 3. Augmentin 875 b.i.d. 4. Vitamin D 1000 units daily. 5. Decadron 8 mg daily for the past several days. 6. Diltiazem 120 mg t.i.d. 7. Cipro 500 mg b.i.d. 8. Morphine sulfate 15 mg q.4 hours p.r.n. pain. ALLERGIES: She has no allergies. FAMILY HISTORY: Both parents are living. The mother has cerebral aneurysm. SOCIAL HISTORY: Apparently, she smokes a couple of cigarettes per day and is a former heavy smoker and smoked for about 50 years. She does not drink alcohol and works at [employer]. REVIEW OF SYSTEMS: Difficult to obtain due to her confusion. PHYSICAL EXAM: On exam, temperature currently is 98.4, pulse 79, respiratory rate 18, blood pressure 144/87. Temperature in hospital is as high as 100.5. She is alert. She does not know her age or where she is. She knows her name. When asked a question, she will begin talking about something else such as that I asked if she has any difficulty speaking, she will say something about stomach pain, but then switch subjects, but she says she is just confused and sometimes her sentences did not make sense, but she can name parts of body and possibly had some word finding difficulties, but it is principally confusion. Cranial nerves II through XII were intact other than there is some minor facial asymmetry where her right side of her face may have a minor weakness. Fundi were not well seen. Red reflexes intact. She was uncooperative with funduscopic exam. Motor exam revealed normal tone, strength, reach for objects with power. Touch was intact. She could follow 1 step and some 2-step commands. Chest: Clear. Cardiovascular: Regular rate and rhythm. Abdomen: Soft with positive bowel sounds. There is no rash. DIAGNOSTIC STUDIES/LAB DATA: Her CT scan showed a left maxillary sinus air fluid level and has an increased density in the basilar artery. CT brain itself appeared intact. The CTA of the head and neck was normal. Labs include a white count today of 11.5, yesterday was 12.9; hematocrit of 38, platelet count of 295, of 15%. Sodium is 131, potassium 3.3, creatinine 0.8. Normal liver function tests and ammonia. C-reactive protein is 41. UA showed 1+ protein, 1+ ketones. CSF had 805 white cells, red cells 711, total protein 251, glucose 45 with 40 neutrophils, 33 lymphs, 27 monos. There is a note saying marked acute inflammation. Serum alcohol was less than 10. HSV 1 and 2 antibodies are pending. ASSESSMENT AND PLAN: I discussed with Dr. Fuentes last night and he called that the CT showing the basilar artery sign, to get a CTA, but he also recommended starting acyclovir given the sense that she might have an aphasia and confusion in the setting of fever and we also discussed, depending on when the LP was going to be done, beginning antibiotics empirically before the spinal tap, which I was recommending. 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 Since she has been on antibiotics, this could be partially treated bacterial meningitis or this could be viral such as herpes or other viruses, cryptococcal antigen needs to be sent out as well. With the number of lymphocytes, I would be concerned, whether to make sure that we are adequately covering listeria thing such as TB, it would be possible but less likely, which is basically a complicated ID case and I had recommended Dr. Rodríguez this morning that she contact Infectious Disease to run the case by and to see if they have further recommendations. From a neurological point of view, she needs an MRI scan with and without contrast, which has been ordered. She needs an EEG, which is being ordered. I have spoken to the dictaphone technician to make sure that there is a tendency towards seizures here and I would definitely add Lyme titers. I defer to ID again in terms of a full panel viral studies and other infectious studies to be done in addition to the herpes PCR, the cryptococcal antigen, the Lyme titers and also routine studies and bacterial. One other possibility is she could have an abscess and this could be from her infected tonsil and she could have a parameningeal abscesses, notably brain abscess complicating this but there is no abscess noted on CT scan, so it is unlikely to be the case, but the MRI scan will more fully delineate things such as small abscesses, pockets of infection. It would also be helpful to assessing whether this is herpes. Thank you for sharing her case. I also defer to ID whether she should be in isolation or not. [id number]/[facility] #: [id number] YARELIS
--- NOTE | 2018-03-01 21:55 | RAD ---
EXAM: MR Head Without Intravenous Contrast CLINICAL HISTORY: 62 years old, female; Signs and symptoms; Altered mental status/memory loss; Confusion or disorientation; Patient HX: C/O sore throat & AMS (confusion & speech difficulty). Pt dx'ed w/ meningitis- R/O abscess TECHNIQUE: Magnetic resonance images of the head/brain without intravenous contrast in multiple planes. COMPARISON: BRAIN WO CT BRAIN WO 2018-02-28 15:26 FINDINGS: Brain: No evidence of an acute intracranial hemorrhage. No intracranial mass or mass effect. Diffusion weighted study shows no evidence of acute or subacute infarct. The franco matter is intact. No significant white matter disease. Ventricles: No obstructive hydrocephalus. Bones/joints: Unremarkable. Sinuses: Mucoperiosteal thickening left maxillary sinus. Bubbly fluid within the left maxillary sinus. Mastoid air cells: Unremarkable as visualized. No mastoid effusion. Orbits: Unremarkable as visualized. Sella: Partially empty sella. IMPRESSION: 1. The MRI study the brain is normal. No evidence of a basilar artery thrombosis. 2. Possible left maxillary sinusitis. R0
--- NOTE | 2018-03-01 22:04 | RAD ---
EXAM: MR Neck Without Intravenous Contrast CLINICAL HISTORY: 62 years old, female; Signs and symptoms; Other: Sore throat; Patient HX: C/O sore throat & AMS. Dx'ed with meningitis; Additional info: Attn: Orpharynx TECHNIQUE: Multiplanar magnetic resonance images of the neck without intravenous contrast. COMPARISON: CTA HD/NK CTA HEAD/NECK 2018-02-28 16:56 FINDINGS: Nasopharynx: Unremarkable. Oral cavity: Images of the tongue are degraded by motion artifact. Neural tonsils are normal in appearance. Oral pharynx: Thickening of the tonsillar pillars bilaterally. The bilateral tonsillar fluid collections seen on the recent CT scan of 02/28/2018 is not visualized on the MRI study. Hypopharynx: Unremarkable. Larynx: Unremarkable. Normal epiglottis. Retropharyngeal space: No abnormal retropharyngeal swelling. No retropharyngeal fluid collection. Submandibular/parotid glands: Unremarkable. Glands are normal in size. Thyroid: Unremarkable. No enlarged or calcified nodules. Bones/joints: Unremarkable. Vasculature: Unremarkable. Lymph nodes: Prominent lymph nodes in region 2A and 2B. No evidence of necrosis. Sinuses: Bubbly appearing mucus in the left maxillary sinus with mucoperiosteal thickening. Orbits: The globes are intact. The appearance of the extraocular muscles and optic nerves are normal. IMPRESSION: 1. The MRI study of the neck does not show the tonsillar abscesses as well as CT scan. Associated bilateral adenopathy in region 2A and 2B without evidence of necrosis. 2. Bubbly appearance to the fluid located in the left maxillary sinus consistent with sinusitis. Final read addendum: Evaluation is limited by technique and extensive patient motion artifact. R2
[2018-03-01] MEDS: Cefepime(*) 2 GM in D5W 100 ML BAG* 100 ML IVPB SCH (22:31)
--- NOTE | 2018-03-01 22:55 | EEG ---
ELECTROENCEPHALOGRAPHY: DATE OF STUDY: 03/01/18 ROOM #[id number] DATE OF DICTATION: 03/01/18 PATIENT OF: Dr. Rodríguez. CLINICAL PROBLEM: This is a 62-year-old woman being evaluated for confusion, aphasia, and a lymphocytic meningitis. MEDICATIONS: Include: 1. Morphine. 2. Zofran. 3. Percocet. 4. Cefepime. 5. Diltiazem. 6. Acyclovir. 7. Vancomycin. 8. Lidocaine. REPORT: Background cerebral activity consists of admixed delta, theta, and alpha range frequencies with more prominent delta slowing in the left frontotemporal head region. No clear epileptiform potentials were noted. CLINICAL IMPRESSION: This EEG is abnormal because of diffuse slowing of background as well as consistent with a generalized encephalopathy. There is a focal slowing in the left frontotemporal area suggesting an underlying process there. [id number]/CPS #: [id number] MTDD
[2018-03-02] MEDS: levETIRAcetam IV* 750 MG in NS 0.9% 100 ML* 100 ML IVPB SCH ×2 (01:51→14:10)
[2018-03-02] MEDS: Ampicillin IV* 2 GM in NS 0.9% 100 ML* 100 ML IVPB SCH ×4 (03:30→15:17)
[2018-03-02] MEDS: NS 0.9% 1000 ML* 1,000 ML IV SCH ×2 (03:43→21:32)
[2018-03-02] MEDS: NS 0.9% IVPB SCH ×3 (06:09→21:13)
[2018-03-02] MEDS: ACYCLOVIR IVPB SCH ×3 (06:09→21:13)
[2018-03-02] MEDS: Morphine INJ* 2 MG/ML 1 ML SYRINGE (TWO MG - NEW SYRINGE VERSION) IV PRN ×2 (06:13→11:48)
[2018-03-02] MEDS: Heparin VIAL(*) 5000 UNITS/ML VIAL (FIVE THOUSAND) SUBCUT SCH ×3 (06:19→21:23)
[2018-03-02 06:40] LABS: Hematocrit 37 % (35-47); Hemoglobin 13.4 g/dl (12.0-16.0); Mean Corpuscular HGB Conc 36 g/dl (31-36); Mean Corpuscular Hemoglobin 33 pg (27-31); Mean Corpuscular Volume 92 fL (80-97); Platelet Count 285 10^3/ul (150-450); Red Blood Count 4.04 10^6/ul (4.00-5.40); Red Cell Distribution Width 13 % (10.5-15)
[2018-03-02 06:57] LABS: EGFR Non-African American 119.1 (>60)
[2018-03-02] MEDS: Vancomycin(*) 1,000 MG in NS 0.9% 250 ML* 250 ML IVPB SCH ×3 (07:44→23:56)
[2018-03-02] MEDS ORDERED: Vancomycin Trough Check NOTE FOLLOW UP ONE (08:00)
[2018-03-02] MEDS: Cefepime(*) 2 GM in D5W 100 ML BAG* 100 ML IVPB SCH ×2 (08:35→21:42)
[2018-03-02] MEDS: Diltiazem TAB* 60 MG PO SCH ×3 (08:39→21:24)
[2018-03-02] MEDS: oxyCODONE/Acetamin 5/325 MG* TAB PO PRN ×4 (08:40→23:52)
[2018-03-02] MEDS ORDERED: Potassium Chloride LIQUID* 20 MEQ PACKET PO ONE (09:00)
[2018-03-02] MEDS: KCL 20 MEQ/100 ML IVPREMIX* 20 MEQ/100 ML BAG IV SCH ×2 (09:17→11:22)
--- NOTE | 2018-03-02 10:39 | PN ---
Subjective Date of Service: 03/02/18 Interval History: feeling much better. AAOx4. Tmax 99.0 6/10 GONZALEZ. no neck stiffness. sensation like a "rock" in throat but much better and able to swallow. first symptoms started 02/13, would have gone to dr sooner if back home. exposure to "filthy" [place] in [place]. [place]. went thigh deep. denies known HSV hx. Objective Active Medications: Acetaminophen (Tylenol Tab*) 650 mg PO Q4H PRN PRN Reason: PAIN Last Admin: 03/01/18 18:36 Dose: 650 mg Diltiazem HCl (Cardizem Tab*) 120 mg PO TID [facility] Last Admin: 03/02/18 08:39 Dose: 120 mg Heparin Sodium (Porcine) (Heparin Vial(*)) 5,000 units SUBCUT Q8HR [facility] Last Admin: 03/02/18 06:19 Dose: 5,000 units Sodium Chloride (Ns 0.9% 1000 Ml*) 1,000 mls @ 100 mls/hr IV PER RATE [facility] Last Admin: 03/02/18 03:43 Dose: 100 mls/hr Sodium Chloride (Ns 0.9% 1000 Ml*) 1,000 mls @ 100 mls/hr IV PER RATE [facility] Vancomycin HCl 1,000 mg/ (Sodium Chloride) 250 mls @ 166.667 mls/hr IVPB 0000, 0800,1600 [facility] Last Admin: 03/02/18 07:44 Dose: 166.667 mls/hr Ampicillin Sodium 2 gm/ Sodium (Chloride) 100 mls @ 200 mls/hr IVPB Q4H [facility] Last Admin: 03/02/18 07:44 Dose: 200 mls/hr Acyclovir Sodium 520 mg/ (Sodium Chloride) 110.4 mls @ 127.38 mls/hr IVPB 0500, 1300,2100 [facility] Last Admin: 03/02/18 06:09 Dose: 127.38 mls/hr Cefepime HCl 2 gm/ Dextrose 100 mls @ 200 mls/hr IVPB Q12HR [facility] Last Admin: 03/02/18 08:35 Dose: 200 mls/hr Levetiracetam 750 mg/ Sodium (Chloride) 107.5 mls @ 430 mls/hr IVPB Q12H [facility] Last Admin: 03/02/18 01:51 Dose: 430 mls/hr Potassium Chloride (Potassium Chloride 20 Meq/100 Ml Ivpremix*) 20 meq in 100 mls @ 50 mls/hr IV Q2H [facility] Stop: 03/02/18 12:59 Last Admin: 03/02/18 09:17 Dose: 50 mls/hr Lidocaine (Xylocaine 2% Viscous*) 15 ml SWISH SWAL Q3H PRN PRN Reason: THROAT PAIN Last Admin: 03/01/18 22:04 Dose: 15 ml Morphine Sulfate (Morphine Inj ((Syringe))*) 2 mg IV Q4H PRN PRN Reason: PAIN - MILD Last Admin: 03/02/18 06:13 Dose: 2 mg Ondansetron HCl (Zofran Inj*) 4 mg IV Q6H PRN PRN Reason: NAUSEA Last Admin: 03/01/18 00:36 Dose: 4 mg Oxycodone/Acetaminophen (Percocet 5/325 Tab*) 1 tab PO Q4H PRN PRN Reason: PAIN Last Admin: 03/02/18 08:40 Dose: 1 tab Pantoprazole Sodium (Protonix Iv*) 40 mg IV Q24H [facility] Last Admin: 03/01/18 12:49 Dose: 40 mg Pharmacy Consult (Vancomycin Per Pharmacy*) 1 note FOLLOW UP . PRN PRN Reason: PER PROTOCOL Pharmacy Profile Note (Vancomycin Trough Check) 1 note FOLLOW UP 0730 ONE Stop: 03/04/18 07:31 Vital Signs - 8 hr 03/02/18 03/02/18 03/02/18 03:00 03:38 04:00 Temperature 99 F Pulse Rate 69 71 Respiratory 21 24 Rate Blood Pressure 139/78 142/76 (mmHg) O2 Sat by Pulse 93 93 Oximetry 03/02/18 03/02/18 03/02/18 05:00 06:00 06:13 Temperature Pulse Rate 74 69 Respiratory 23 23 23 Rate Blood Pressure 147/84 144/76 (mmHg) O2 Sat by Pulse 93 93 Oximetry 03/02/18 03/02/18 03/02/18 07:00 08:00 08:40 Temperature 98.8 F Pulse Rate 75 69 Respiratory 23 27 16 Rate Blood Pressure 144/77 137/74 (mmHg) O2 Sat by Pulse 91 92 Oximetry 03/02/18 03/02/18 09:00 10:00 Temperature Pulse Rate 70 65 Respiratory 18 22 Rate Blood Pressure 136/78 104/56 (mmHg) O2 Sat by Pulse 92 89 Oximetry Oxygen Devices in Use Now: None Appearance: NAD Eyes: No Scleral Icterus, PERRLA Ears/Nose/Mouth/Throat: - - b/l white exudates and vertical slit like openings near tonsils. erythema. Neck: NL Appearance and Movements; NL JVP, Trachea Midline Respiratory: Symmetrical Chest Expansion and Respiratory Effort, Clear to Auscultation Cardiovascular: NL Sounds; No Murmurs; No JVD, RRR Abdominal: NL Sounds; No Tenderness; No Distention, No Hepatosplenomegaly Extremities: No Edema Skin: No Rash or Ulcers Neurological: Alert and Oriented x 3, NL Sensation, NL Muscle Strength and Tone Nutrition: Taking PO's Result Diagrams: 03/02/18 03:25 03/02/18 03:25 Additional Lab and Data: Laboratory Results - last 24 hr 03/02/18 03/02/18 03/02/18 03:25 03:25 06:25 WBC 8.0 RBC 4.04 Hgb 13.4 Hct 37 MCV 92 MCH 33 H MCHC 36 RDW 13 Plt Count 285 MPV 7.0 L Sodium 134 L Potassium 3.5 Chloride 101 Carbon Dioxide 24 Anion Gap 9 BUN 9 Creatinine 0.52 Est GFR ( Amer) 144.1 Est GFR (Non-Af Amer) 119.1 BUN/Creatinine Ratio 17.3 Glucose 78 Calcium 8.0 L Magnesium 1.8 L Total Bilirubin 0.60 AST 13 ALT 19 Alkaline Phosphatase 80 C-Reactive Protein 120.92 H Total Protein 6.0 L Albumin 2.9 L Globulin 3.1 Albumin/Globulin Ratio 0.9 L Vancomycin Trough 14.2 Microbiology and Other Data: Microbiology 02/28/18 16:33 Urine Urine Culture - Final 03/01/18 14:10 Nasal Nasal Screen MRSA (PCR) - Final Mrsa Not Detected 02/28/18 19:37 Cerebral Spinal Fluid CSF Gram Stain (Tube 3) - Final 02/28/18 19:37 Cerebral Spinal Fluid CSF Culture - Preliminary No Growth Day 1 Assess/Plan/Problems-Billing Assessment: 62 yo F with h/o HTN and recent h/o pseudomonas pharyngitis tx with Cipro/ Augmentin/Decadron presents with AMS - Patient Problems (1) Altered mental state Current Visit: Yes Status: Acute Code(s): R41.82 - ALTERED MENTAL STATUS, UNSPECIFIED SNOMED Code(s): 722922406 Comment: CSF shows >800 WBC and protein >200 consistent with menigitis and likely encephalitis given AMS. cont neurochecks Q4H. CSF culture w/o growth to date. MRI brain w/o abscess Unfortunately blood cx were not obtained at admission and will be ordered now Appreciate Dr. Amado's consult. Given recent tx with Decadron for pharyngitis HSV probable, but cx are pending. CSF cryptococcus antigen pending. Dr. Rodríguez talked with Dr. Patel from [facility] (ID specialist) who recommended adding ampicillin for Listeria coverage. Patient has resolved mental status. Yohan Vera returns on 03/04. I don't see compelling reason for transfer at this time (there were no bed yesterda). cont Cefepime/Vanc/Acyclovir/ampicillin. step down from ICU to medical floor (2) DVT prophylaxis Current Visit: Yes Status: Acute Code(s): XNC2828 - SNOMED Code(s): 455470221 Comment: HSQ (3) HTN (hypertension) Current Visit: Yes Status: Acute Code(s): I10 - ESSENTIAL (PRIMARY) HYPERTENSION SNOMED Code(s): 97926763 Comment: controlled, cont home Cardizem (4) Pharyngitis Current Visit: Yes Status: Acute Code(s): J02.9 - ACUTE PHARYNGITIS, UNSPECIFIED SNOMED Code(s): 722251246 Comment: still significant. Cont Cefepime(cx from 02/22/18 grew Pseudomonas) cont Viscous Lido topically odynophagia due to pharyngitis is improving. full liquid diet Dr. Rodríguez discussed with ENT(Dr. Alfaro): MRI neck did not show clear e/o abscess continue broad spectrum antibiotics coverage. Status and Disposition: inpatient. step down to medicine.
[2018-03-02] MEDS ORDERED: Magnesium Sulfate 1 GM IV* 1 GM/100 ML BAG IV ONE (11:00)
[2018-03-02] MEDS: Pantoprazole IV* 40 MG IV SCH (11:12)
--- NOTE | 2018-03-02 20:16 | PN ---
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 She has no headache today. She feels much better, although she feels somewhat tired. She is able to give a coherent story and she is alert and completely oriented. MEDICATIONS: Include: 1. Acyclovir. 2. Ampicillin. 3. Cefepime. 4. Cardizem 120 t.i.d. 5. Keppra. 6. Morphine p.r.n. pain. 7. Zofran p.r.n. nausea. 8. Vancomycin. PHYSICAL EXAMINATION: Vital Signs: Temperature 98.2, pulse 62, respirations 12 , blood pressure 117/59. She is alert and oriented with normal speech and comprehension. Cranial nerves II through XII are intact. Motor exam revealed normal tone and strength, coordination and gait. Chest: Clear. Cardiovascular : Regular rate and rhythm. Abdomen: Soft, positive bowel sounds. DIAGNOSTIC STUDIES AND LABORATORY DATA: I reviewed her MRI scan, which was normal. She also had a head and neck and face MRI scan, her EEG and that did not show any tonsillar abscess but bilateral adenopathy. She has a left maxillary sinusitis. Her EEG showed diffuse swelling and some left temporal swelling. In addition, her white count today is 8, hematocrit 37, platelets 285. CMP was normal other than a sodium of 134, calcium of 8. C-reactive protein was 120. HIV was nonreactive. Stefanie's cultures and herpes PCR are pending, but clinically she is vastly improved yesterday from her encephalopathic state but the aphasia does seem to be resolved at this point. It is most likely that one of her antibiotics or antivirals is targeting the right agent and we will await her serologies and cultures. I discussed with her that this was bacterial. We may not be to culture anything because she was on antibiotics prior to her spinal tap. I discussed also with her that Dr. Vera will be coming back on Sunday, but that Dr. Rodríguez has already had an in-depth telephone call with the [place] doctor in [place]. At this point, I do not think she is to be on Keppra as a precaution. I have spoken to Dr. Menchaca who will be stopping it. Thank you for sharing her case. [id number]/[facility] #: [id number] HOSPITALFaby
[2018-03-03] MEDS: Ondansetron INJ* 2 MG/ML VIAL IV PRN ×3 (02:11→23:34)
[2018-03-03] MEDS: Heparin VIAL(*) 5000 UNITS/ML VIAL (FIVE THOUSAND) SUBCUT SCH ×3 (04:33→21:57)
[2018-03-03] MEDS: ACYCLOVIR IVPB SCH ×3 (04:33→20:53)
[2018-03-03] MEDS: oxyCODONE/Acetamin 5/325 MG* TAB PO PRN ×5 (04:33→21:57)
[2018-03-03] MEDS: NS 0.9% IVPB SCH ×3 (04:33→20:53)
[2018-03-03] MEDS: Acetaminophen TAB* 325 MG PO PRN (07:56)
[2018-03-03 08:18] LABS: ABS Basophils 0 10^3/ul (0-0.2); ABS Eosinophils 0.1 10^3/ul (0-0.6); ABS Lymphocytes 2.7 10^3/ul (1.0-4.8); ABS Monocytes 0.6 10^3/ul (0-0.8); ABS Nucleated RBC 0 10^3/ul; Eosinophil % 2.3 % (0-6); Hematocrit 36 % (35-47); Lymphocyte % 41.9 % (25-47); Mean Corpuscular HGB Conc 36 g/dl (31-36); Mean Corpuscular Hemoglobin 33 pg (27-31); Mean Corpuscular Volume 91 fL (80-97); Nucleated Red Blood Cells % 0.1; Platelet Count 291 10^3/ul (150-450); Red Blood Count 3.98 10^6/ul (4.00-5.40); Red Cell Distribution Width 13 % (10.5-15); White Blood Count 6.4 10^3/ul (3.5-10.8)
[2018-03-03 08:33] LABS: EGFR Non-African American 109.3 (>60)
[2018-03-03] MEDS: Diltiazem TAB* 60 MG PO SCH ×3 (08:45→20:53)
[2018-03-03] MEDS: Cefepime(*) 2 GM in D5W 100 ML BAG* 100 ML IVPB SCH ×2 (08:46→20:53)
[2018-03-03] MEDS: Vancomycin(*) 1,000 MG in NS 0.9% 250 ML* 250 ML IVPB SCH ×3 (08:47→23:24)
--- NOTE | 2018-03-03 09:05 | PN ---
Subjective Date of Service: 03/03/18 Interval History: Wanting to advance diet to soft from full liquid. Coffee and OJ w/o pain(unlike last week). GONZALEZ much improved, barely at left roman catholic. 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 Afebrile. CSF culture still negative. Ampicillin was stopped yesterday afternoon after HSV2 positive. No chest pain, SOB, fevers, abdominal pain. Objective Active Medications: Acetaminophen (Tylenol Tab*) 650 mg PO Q4H PRN PRN Reason: PAIN Last Admin: 03/03/18 07:56 Dose: 650 mg Diltiazem HCl (Cardizem Tab*) 120 mg PO TID [facility] Last Admin: 03/03/18 08:45 Dose: 120 mg Heparin Sodium (Porcine) (Heparin Vial(*)) 5,000 units SUBCUT Q8HR [facility] Last Admin: 03/03/18 04:33 Dose: 5,000 units Sodium Chloride (Ns 0.9% 1000 Ml*) 1,000 mls @ 100 mls/hr IV PER RATE [facility] Last Admin: 03/02/18 21:32 Dose: 100 mls/hr Vancomycin HCl 1,000 mg/ (Sodium Chloride) 250 mls @ 166.667 mls/hr IVPB 0000, 0800,1600 [facility] Last Admin: 03/03/18 08:47 Dose: 166.667 mls/hr Acyclovir Sodium 520 mg/ (Sodium Chloride) 110.4 mls @ 127.38 mls/hr IVPB 0500, 1300,2100 [facility] Last Admin: 03/03/18 04:33 Dose: 127.38 mls/hr Cefepime HCl 2 gm/ Dextrose 100 mls @ 200 mls/hr IVPB Q12HR [facility] Last Admin: 03/03/18 08:46 Dose: 200 mls/hr Lidocaine (Xylocaine 2% Viscous*) 15 ml SWISH SWAL Q3H PRN PRN Reason: THROAT PAIN Last Admin: 03/01/18 22:04 Dose: 15 ml Morphine Sulfate (Morphine Inj ((Syringe))*) 2 mg IV Q4H PRN PRN Reason: PAIN - MILD Last Admin: 03/02/18 11:48 Dose: 2 mg Ondansetron HCl (Zofran Inj*) 4 mg IV Q6H PRN PRN Reason: NAUSEA Last Admin: 03/03/18 02:11 Dose: 4 mg Oxycodone/Acetaminophen (Percocet 5/325 Tab*) 1 tab PO Q4H PRN PRN Reason: PAIN Last Admin: 03/03/18 08:45 Dose: 1 tab Pantoprazole Sodium (Protonix Iv*) 40 mg IV Q24H [facility] Last Admin: 03/02/18 11:12 Dose: 40 mg Pharmacy Consult (Vancomycin Per Pharmacy*) 1 note FOLLOW UP . PRN PRN Reason: PER PROTOCOL Pharmacy Profile Note (Vancomycin Trough Check) 1 note FOLLOW UP 0730 ONE Stop: 03/04/18 07:31 Vital Signs - 8 hr 03/03/18 03/03/18 03/03/18 02:18 03:28 04:33 Temperature 98.4 F Pulse Rate 65 Respiratory 16 20 18 Rate Blood Pressure 139/76 (mmHg) O2 Sat by Pulse 96 Oximetry 03/03/18 03/03/18 03/03/18 07:11 07:55 08:45 Temperature 98.5 F Pulse Rate 63 Respiratory 16 14 18 Rate Blood Pressure 136/70 (mmHg) O2 Sat by Pulse 98 Oximetry Oxygen Devices in Use Now: None Appearance: NAD, Eyes: No Scleral Icterus, PERRLA Ears/Nose/Mouth/Throat: NL Teeth, Lips, Gums, Mucous Membranes Moist, - - white exudate with vertical slits on b/l tonsils, few clear lesions with surrounding erythema in posterior oropharynx. Neck: NL Appearance and Movements; NL JVP, Trachea Midline Respiratory: Symmetrical Chest Expansion and Respiratory Effort, Clear to Auscultation Cardiovascular: NL Sounds; No Murmurs; No JVD, RRR Abdominal: NL Sounds; No Tenderness; No Distention, No Hepatosplenomegaly Extremities: No Edema, No Clubbing, Cyanosis Skin: No Rash or Ulcers, No Nodules or Sclerosis Neurological: Alert and Oriented x 3, NL Sensation, NL Muscle Strength and Tone Lines/Tubes/Other Access: Clean, Dry and Intact Other Access - Midlines in b/l ACF Nutrition: Taking PO's Result Diagrams: 03/03/18 08:05 03/03/18 08:05 Additional Lab and Data: Laboratory Results - last 24 hr 02/28/18 02/28/18 03/02/18 15:44 19:38 03:25 WBC RBC Hgb Hct MCV MCH MCHC RDW Plt Count MPV Neut % (Auto) Lymph % (Auto) [place] % (Auto) Eos % (Auto) Baso % (Auto) Absolute Neuts (auto) Absolute Lymphs (auto) Absolute Monos (auto) Absolute Eos (auto) Absolute Basos (auto) Absolute Nucleated RBC Nucleated RBC % Sodium Potassium Chloride Carbon Dioxide Anion Gap BUN Creatinine Est GFR ( Amer) Est GFR (Non-Af Amer) BUN/Creatinine Ratio Glucose Calcium Magnesium 1.8 L CSF HSV I (PCR) Negative CSF Herpes II DNA (PCR) Positive A* HIV 1&2 Antibody Nonreactive 03/03/18 03/03/18 08:05 08:05 WBC 6.4 RBC 3.98 L Hgb 13.0 Hct 36 MCV 91 MCH 33 H MCHC 36 RDW 13 Plt Count 291 MPV 7.0 L Neut % (Auto) 46.8 Lymph % (Auto) 41.9 [place] % (Auto) 8.8 H Eos % (Auto) 2.3 Baso % (Auto) 0.2 Absolute Neuts (auto) 3.0 Absolute Lymphs (auto) 2.7 Absolute Monos (auto) 0.6 Absolute Eos (auto) 0.1 Absolute Basos (auto) 0 Absolute Nucleated RBC 0 Nucleated RBC % 0.1 Sodium 136 Potassium 3.9 Chloride 103 Carbon Dioxide 29 Anion Gap 4 BUN 5 L Creatinine 0.56 Est GFR ( Amer) 132.3 Est GFR (Non-Af Amer) 109.3 BUN/Creatinine Ratio 8.9 Glucose 96 Calcium 8.3 L Magnesium 1.9 CSF HSV I (PCR) CSF Herpes II DNA (PCR) HIV 1&2 Antibody Microbiology and Other Data: Microbiology 03/01/18 13:00 Blood Venous Aerobic Blood Culture - Preliminary No Growth Day 1 03/01/18 13:00 Blood Venous Anaerobic Blood Culture - Preliminary No Growth Day 1 03/01/18 13:00 Blood Venous Aerobic Blood Culture - Preliminary No Growth Day 1 03/01/18 13:00 Blood Venous Anaerobic Blood Culture - Preliminary No Growth Day 1 02/28/18 19:37 Cerebral Spinal Fluid CSF Gram Stain (Tube 3) - Final 02/28/18 19:37 Cerebral Spinal Fluid CSF Culture - Preliminary No Growth Day 2 02/28/18 16:33 Urine Urine Culture - Final 03/01/18 14:10 Nasal Nasal Screen MRSA (PCR) - Final Mrsa Not Detected Assess/Plan/Problems-Billing Assessment: 62 yo F with h/o HTN and recent h/o pseudomonas pharyngitis tx (tx delayed given travel) with Cipro/Augmentin/Decadron presents with AMS, fever. HSV2 encephelitis, rapidly improved. - Patient Problems (1) Altered mental state Current Visit: Yes Status: Acute Code(s): R41.82 - ALTERED MENTAL STATUS, UNSPECIFIED SNOMED Code(s): 468086105 Comment: CSF shows >800 WBC and protein >200 HSV2 PCR positive. Herpes Encephelitis with resolved AMS lengthen neurochecks to Q8H. CSF culture w/o growth to date x 2 days. MRI brain w/o abscess Blood cx were not obtained at admission. Bcx from 03/01 (after bse abx) NGTD x1 Appreciate Dr. Amado's consult.Given recent tx with Decadron for pharyngitis HSV probable, but cx are pending. CSF cryptococcus antigen pending. ID Yohan Vera returns on 03/04. continue Cefepime/Vanc/Acyclovir for now. Will need Acyclovier for 14-21 days. Ampicillin was stopped yesterday. Likely can stop Vancomycin tomorrow after ID eval. (2) Pharyngitis Current Visit: Yes Status: Acute Code(s): J02.9 - ACUTE PHARYNGITIS, UNSPECIFIED SNOMED Code(s): 600051043 Comment: still significant. Cont Cefepime(cx from 02/22/18 grew Pseudomonas) cont Viscous Lido topically odynophagia due to pharyngitis is improving. diet advanced to soft from full liquid diet Dr. Rodríguez discussed with ENT(Dr. Alfaro): MRI neck did not show clear e/o abscess (3) HTN (hypertension) Current Visit: Yes Status: Acute Code(s): I10 - ESSENTIAL (PRIMARY) HYPERTENSION SNOMED Code(s): 52424278 Comment: controlled, cont home Cardizem (4) DVT prophylaxis Current Visit: Yes Status: Acute Code(s): AUK0711 - SNOMED Code(s): 501678760 Comment: HSQ Status and Disposition: inpatient. will need home going IV acyclovir along with psuedomonas coverage. Midlines in place. Needs ID eval.
[2018-03-03] MEDS ORDERED: Magnesium Sulfate 1 GM IV* 1 GM/100 ML BAG IV ONE (09:19)
[2018-03-03] MEDS: Cholecalciferol TAB* 1000 UNITS PO SCH (10:12)
[2018-03-03] MEDS: Omeprazole CAP* 20 MG PO SCH (10:12)
[2018-03-03 13:01] LABS: Lyme Disease Source CSF
[2018-03-03 13:09] LABS: B. miyamotoi PCR, B Negative (Negative)
--- NOTE | 2018-03-03 23:30 | PN ---
PROGRESS NOTE: DATE OF SERVICE: 03/03/18 PATIENT OF: Dr. Menchaca. HISTORY: This is a neurological followup on this 62-year-old woman with meningitis. She has no complaints now. She has no headache. No weakness. No focal neurological deficits. No confusion. MEDICATIONS: Remained: 1. Acyclovir. 2. Cefepime. 3. Vancomycin. 4. Percocet p.r.n. 5. Zofran p.r.n. 6. Omeprazole 20 mg daily. 7. Diltiazem 120 t.i.d. PHYSICAL EXAMINATION: On exam, temperature 98.5, pulse 63, respiratory rate 18 , blood pressure 136/70. She was alert and oriented with normal speech and comprehension. Cranial nerves II through XII are intact. Motor exam revealed a normal tone, strength, coordination. Chest is clear. Cardiovascular: Regular rate and rhythm. Abdomen is soft with positive bowel sounds. DIAGNOSTIC STUDIES/LAB DATA: White count 6.4 today, hematocrit 36, platelets 291. Normal BMP other than a calcium of 8.3. Of note, her herpes PCR was positive. 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 Dr. Vera will be in early this week to decide how long to treat her for. Neurology will be involved as needed. Thank you for sharing her case. [id number]/[facility] #: [id number] YARELIS
[2018-03-04] MEDS: oxyCODONE/Acetamin 5/325 MG* TAB PO PRN ×3 (04:02→21:55)
[2018-03-04] MEDS: ACYCLOVIR IVPB SCH ×3 (05:40→21:58)
[2018-03-04] MEDS: NS 0.9% IVPB SCH ×3 (05:40→21:58)
[2018-03-04] MEDS: Heparin VIAL(*) 5000 UNITS/ML VIAL (FIVE THOUSAND) SUBCUT SCH ×3 (05:41→21:57)
[2018-03-04] MEDS ORDERED: Vancomycin Trough Check NOTE FOLLOW UP ONE (07:30)
[2018-03-04 08:10] LABS: EGFR Non-African American 88.9 (>60)
[2018-03-04] MEDS: Cefepime(*) 2 GM in D5W 100 ML BAG* 100 ML IVPB SCH (08:51)
[2018-03-04] MEDS: Diltiazem TAB* 60 MG PO SCH ×3 (08:55→21:56)
[2018-03-04] MEDS: Omeprazole CAP* 20 MG PO SCH (08:56)
[2018-03-04] MEDS: Cholecalciferol TAB* 1000 UNITS PO SCH (08:56)
[2018-03-04] MEDS: Vancomycin(*) 1,000 MG in NS 0.9% 250 ML* 250 ML IVPB SCH (09:32)
[2018-03-04] MEDS ORDERED: Vancomycin(*) 1,000 MG in NS 0.9% 250 ML* 250 ML IVPB SCH (12:00)
[2018-03-04] MEDS ORDERED: Cefepime(*) 2 GM in NS 0.9% 50 ML* 50 ML IVPB SCH (12:52)
--- NOTE | 2018-03-04 17:43 | PN ---
Subjective Date of Service: 03/04/18 Interval History: Patient seen and examined. Daughter at bedside. PAtient states she still has sore throat and headache. Denies fevers or chills. No blurry vision, steady gait. 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 Objective Active Medications: Acetaminophen (Tylenol Tab*) 650 mg PO Q4H PRN PRN Reason: PAIN Last Admin: 03/03/18 07:56 Dose: 650 mg Cholecalciferol (Vitamin D Tab*) 1,000 units PO DAILY [facility] Last Admin: 03/04/18 08:56 Dose: 1,000 units Diltiazem HCl (Cardizem Tab*) 120 mg PO TID [facility] Last Admin: 03/04/18 13:55 Dose: 120 mg Heparin Sodium (Porcine) (Heparin Vial(*)) 5,000 units SUBCUT Q8HR [facility] Last Admin: 03/04/18 13:55 Dose: 5,000 units Acyclovir Sodium 520 mg/ (Sodium Chloride) 110.4 mls @ 127.38 mls/hr IVPB 0500, 1300,2100 [facility] Last Admin: 03/04/18 14:36 Dose: 127.38 mls/hr Lidocaine (Xylocaine 2% Viscous*) 15 ml SWISH SWAL Q3H PRN PRN Reason: THROAT PAIN Last Admin: 03/01/18 22:04 Dose: 15 ml Morphine Sulfate (Morphine Inj ((Syringe))*) 2 mg IV Q4H PRN PRN Reason: PAIN - MILD Last Admin: 03/02/18 11:48 Dose: 2 mg Omeprazole (Prilosec Cap*) 20 mg PO DAILY [facility] Stop: 03/07/18 09:01 Last Admin: 03/04/18 08:56 Dose: 20 mg Ondansetron HCl (Zofran Inj*) 4 mg IV Q6H PRN PRN Reason: NAUSEA Last Admin: 03/03/18 23:34 Dose: 4 mg Oxycodone/Acetaminophen (Percocet 5/325 Tab*) 1 tab PO Q4H PRN PRN Reason: PAIN Last Admin: 03/04/18 08:55 Dose: 1 tab Vital Signs - 8 hr 03/04/18 03/04/18 03/04/18 10:36 11:07 13:56 Temperature 97.5 F Pulse Rate 62 Respiratory 16 16 18 Rate Blood Pressure 113/66 (mmHg) O2 Sat by Pulse 95 Oximetry 03/04/18 03/04/18 15:10 17:04 Temperature 98.4 F 98.8 F Pulse Rate 71 75 Respiratory 18 19 Rate Blood Pressure 133/74 124/72 (mmHg) O2 Sat by Pulse 98 97 Oximetry Oxygen Devices in Use Now: None Appearance: Alert, NAD Eyes: No Scleral Icterus, PERRLA Ears/Nose/Mouth/Throat: NL Teeth, Lips, Gums, - - oropharyngeatl erythema and pus streaks on tonsils Neck: NL Appearance and Movements; NL JVP Respiratory: Symmetrical Chest Expansion and Respiratory Effort, Clear to Auscultation Cardiovascular: NL Sounds; No Murmurs; No JVD, RRR, No Edema Extremities: No Edema Skin: No Rash or Ulcers Neurological: Alert and Oriented x 3, NL Sensation Lines/Tubes/Other Access: Clean, Dry and Intact PICC Line - 2 midlines right and left Nutrition: Taking PO's Result Diagrams: 03/03/18 08:05 03/04/18 07:45 Additional Lab and Data: Laboratory Results - last 24 hr 02/28/18 02/28/18 03/02/18 15:44 19:38 03:25 WBC RBC Hgb Hct MCV MCH MCHC RDW Plt Count MPV Neut % (Auto) Lymph % (Auto) [place] % (Auto) Eos % (Auto) Baso % (Auto) Absolute Neuts (auto) Absolute Lymphs (auto) Absolute Monos (auto) Absolute Eos (auto) Absolute Basos (auto) Absolute Nucleated RBC Nucleated RBC % Sodium Potassium Chloride Carbon Dioxide Anion Gap BUN Creatinine Est GFR ( Amer) Est GFR (Non-Af Amer) BUN/Creatinine Ratio Glucose Calcium Magnesium 1.8 L CSF HSV I (PCR) Negative CSF Herpes II DNA (PCR) Positive A* HIV 1&2 Antibody Nonreactive 03/03/18 03/03/18 08:05 08:05 WBC 6.4 RBC 3.98 L Hgb 13.0 Hct 36 MCV 91 MCH 33 H MCHC 36 RDW 13 Plt Count 291 MPV 7.0 L Neut % (Auto) 46.8 Lymph % (Auto) 41.9 [place] % (Auto) 8.8 H Eos % (Auto) 2.3 Baso % (Auto) 0.2 Absolute Neuts (auto) 3.0 Absolute Lymphs (auto) 2.7 Absolute Monos (auto) 0.6 Absolute Eos (auto) 0.1 Absolute Basos (auto) 0 Absolute Nucleated RBC 0 Nucleated RBC % 0.1 Sodium 136 Potassium 3.9 Chloride 103 Carbon Dioxide 29 Anion Gap 4 BUN 5 L Creatinine 0.56 Est GFR ( Amer) 132.3 Est GFR (Non-Af Amer) 109.3 BUN/Creatinine Ratio 8.9 Glucose 96 Calcium 8.3 L Magnesium 1.9 CSF HSV I (PCR) CSF Herpes II DNA (PCR) HIV 1&2 Antibody Microbiology and Other Data: Microbiology 03/01/18 13:00 Blood Venous Aerobic Blood Culture - Preliminary No Growth Day 1 03/01/18 13:00 Blood Venous Anaerobic Blood Culture - Preliminary No Growth Day 1 03/01/18 13:00 Blood Venous Aerobic Blood Culture - Preliminary No Growth Day 1 03/01/18 13:00 Blood Venous Anaerobic Blood Culture - Preliminary No Growth Day 1 02/28/18 19:37 Cerebral Spinal Fluid CSF Gram Stain (Tube 3) - Final 02/28/18 19:37 Cerebral Spinal Fluid CSF Culture - Preliminary No Growth Day 2 02/28/18 16:33 Urine Urine Culture - Final 03/01/18 14:10 Nasal Nasal Screen MRSA (PCR) - Final Mrsa Not Detected Diagnostic Imaging: Patient Name: SONDRA KUMARI Medical Record#: [id number] Ordering Physician: Silvana Rodríguez MD Acct.#: [id number] : 1955 Age: 62 Sex: F Location: [facility] Exam Date: 03/01/181142 ADM Status: ADM IN Order Information: MRI FACE AND NECK W/O Accession Number: [id number] CPT: 11958 EXAM: MR Neck Without Intravenous Contrast CLINICAL HISTORY: 62 years old, female; Signs and symptoms; Other: Sore throat; Patient HX: C/O sore throat & AMS. Dx'ed with meningitis; Additional info: Attn: Orpharynx TECHNIQUE: Multiplanar magnetic resonance images of the neck without intravenous contrast. COMPARISON: CTA HD/NK CTA HEAD/NECK 2018-02-28 16:56 FINDINGS: Nasopharynx: Unremarkable. Oral cavity: Images of the tongue are degraded by motion artifact. Neural tonsils are normal in appearance. Oral pharynx: Thickening of the tonsillar pillars bilaterally. The bilateral tonsillar fluid collections seen on the recent CT scan of 02/28/2018 is not visualized on the MRI study. Hypopharynx: Unremarkable. Larynx: Unremarkable. Normal epiglottis. Retropharyngeal space: No abnormal retropharyngeal swelling. No retropharyngeal fluid collection. Submandibular/parotid glands: Unremarkable. Glands are normal in size. Thyroid: Unremarkable. No enlarged or calcified nodules. Bones/joints: Unremarkable. Vasculature: Unremarkable. Lymph nodes: Prominent lymph nodes in region 2A and 2B. No evidence of necrosis. Sinuses: Bubbly appearing mucus in the left maxillary sinus with mucoperiosteal thickening. Orbits: The globes are intact. The appearance of the extraocular muscles and optic nerves are normal. IMPRESSION: 1. The MRI study of the neck does not show the tonsillar abscesses as well as CT scan. Associated bilateral adenopathy in region 2A and 2B without evidence of necrosis. 2. Bubbly appearance to the fluid located in the left maxillary sinus consistent with sinusitis. Final read addendum: Evaluation is limited by technique and extensive patient motion artifact. R2 Assess/Plan/Problems-Billing Assessment: This is a 62 yo F with h/o HTN and recent h/o pseudomonas pharyngitis tx (tx delayed given travel) with Cipro/Augmentin/Decadron presents with AMS, fever. 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 Code(s): B00.3 - HERPESVIRAL MENINGITIS SNOMED Code(s): 25521531 Comment: - CSF shows >800 WBC and protein >200 - PCR positive for HSV2, cryptococcus negative - Continue acyclovir weight based TID, will need for 14 days at discharge - ID consult appreciated - Will stop vanco and cefepime - HSV2 PCR positive - MRI brain w/o peritonsilar abscess - Neuro signed off - Overall improving (2) Altered mental state Code(s): R41.82 - ALTERED MENTAL STATUS, UNSPECIFIED SNOMED Code(s): 068625907 Comment: - Herpes encephalitis with resolved AMS (3) Pharyngitis Code(s): J02.9 - ACUTE PHARYNGITIS, UNSPECIFIED SNOMED Code(s): 771384565 Comment: - Clarify with ID if cefepime still needed, vanco discontinued, afebrile - Continue viscous lidocaine PRN - Diet as tolerated - Dr. Rodríguez discussed with ENT(Dr. Alfaro): MRI neck did not show clear e/o abscess (4) HTN (hypertension) SNOMED Code(s): 11033456 Comment: - controlled, cont home Cardizem (5) DVT prophylaxis Code(s): UUL5725 - SNOMED Code(s): 941975249 Comment: - HSQ Status and Disposition: DC home on IV infusion acyclovir through [facility].
--- NOTE | 2018-03-04 19:55 | CONS ---
CONSULTATION REPORT: DATE OF CONSULT: 03/04/18 REQUESTING PHYSICIAN: Jonny Menchaca MD. CONSULTING SERVICE: Infectious Disease. REASON FOR CONSULT: Encephalitis. IMPRESSION: 1. HSV 2 meningoencephalitis. 2. Pharyngitis. Throat culture have grown pseudomonas. I think more likely it is related to the cause of her encephalitis, which was HSV 2 infection. 3. Encephalopathy was present on admission. It is improving, but not totally resolved. RECOMMENDATIONS: We will continue acyclovir 500 mg every 8 hours. She is day 3 of 14 with weekly CBC, CMP, and CRP. We will stop the vancomycin. Continue cefepime for now. HISTORY OF PRESENT ILLNESS: This is a 62-year-old woman who had a couple of weeks of drenching sweats and then sore throat after she came back from a trip to [place]. She was seen at Urgent Care, was treated with Augmentin and then Cipro when throat culture came back with pseudomonas. She was brought into the hospital on 03/01/18, by family after she was found not to be making sense and acting very strange. She had a lumbar puncture that showed 800 white cells, HSV 2 PCR positive, HSV 1 PCR negative, protein was 251, glucose 45. She has been on acyclovir for 3 days with a steady improvement in her mental status including today that she is up and active and her daughter thinks she is almost back to her usual self. She has not had infection requiring hospitalization in the past. Her workup here included negative HIV test on 02/28/18. Her throat is much better though not totally resolved. PAST MEDICAL HISTORY: 1. Anxiety. 2. Palpitations. 3. Hypertension. 4. Status post cholecystectomy. MEDICATIONS: 1. Tylenol. 2. Acyclovir IV every 8 hours. 3. Cefepime 2 g every 12 hours. 4. Cholecalciferol. 5. Diltiazem. 6. Heparin subcutaneous injection. 7. Omeprazole. 8. Vancomycin 1 g every 12 hours. ALLERGIES: No known drug allergies. FAMILY HISTORY: No recurrent infection. SOCIAL HISTORY: She lives in [place] with her . She has no travel or sick contacts. She is retired. REVIEW OF SYSTEMS: All negative except as noted above in the history of present illness. PHYSICAL EXAM: Vital Signs: Temperature 37, heart rate 70, respiratory rate 16 , blood pressure 128/76, oxygen saturation 95% on room air. In general, she is awake, not in distress. Neurologic: She is oriented x3. Follows commands. Moves all extremities. Cranial nerves II through XII intact. HEENT: There is no conjunctival hemorrhage. Oropharynx: There is posterior oropharyngeal erythema. There is no oral ulcers. Neck: Supple without mass. Lymph Nodes: There is no cervical, supraclavicular, inguinal, axillary, or epitrochlear lymphadenopathy. Heart: Regular rate and rhythm without murmurs, rubs, or gallops. Lungs: Clear to auscultation bilaterally. Abdomen: Soft, nontender , and nondistended. There is bowel sounds present. Skin: There is no rashes or splinter hemorrhages. Musculoskeletal: There is no spinal tenderness to palpation. No joint synovitis. DIAGNOSTIC STUDIES/LAB DATA: White blood cell count 6, hemoglobin 13, and platelets 291. Creatinine 0.5, CRP 120 on 03/02/18, up from 41 on 02/28/18. Please see impressions and recommendations as outlined above, which I have discussed with Milagros Galeana NP. Thanks for asking me to see Ms. Jeff in consultation. [id number]/CPS #: [id number] [facility]ITAL[facility]
[2018-03-04] MEDS: traZODone TAB* 50 MG TAB PO PRN (21:55)
[2018-03-05] MEDS: NS 0.9% IVPB SCH ×3 (06:09→21:13)
[2018-03-05] MEDS: ACYCLOVIR IVPB SCH ×3 (06:09→21:13)
[2018-03-05] MEDS: Heparin VIAL(*) 5000 UNITS/ML VIAL (FIVE THOUSAND) SUBCUT SCH ×3 (06:09→21:14)
[2018-03-05] MEDS: Omeprazole CAP* 20 MG PO SCH (08:46)
[2018-03-05] MEDS: Cholecalciferol TAB* 1000 UNITS PO SCH (08:46)
[2018-03-05] MEDS: Diltiazem TAB* 60 MG PO SCH ×3 (08:46→21:14)
[2018-03-05] MEDS: Acetaminophen TAB* 325 MG PO PRN (13:50)
[2018-03-05] MEDS: traZODone TAB* 50 MG TAB PO PRN (21:18)
--- NOTE | 2018-03-06 01:26 | DS ---
CC: Dr. Henriquez; Dr. Vera.* DISCHARGE SUMMARY: DATE OF ADMISSION: 02/28/18. DATE OF DISCHARGE: 03/06/18. PRIMARY CARE PROVIDER: The patient is going back to see Dr. Henriquez. MY ATTENDING FOR TODAY: Dr. Leif March.* (DICTATED BY NIKO ZEPEDA NP) ATTENDING FOR THIS ADMISSION: Dr. Rachel Song. HOSPITAL COURSE: This is a 62-year-old female patient who presented to the emergency department with altered mental status. The patient for a couple of weeks had began to have a sore throat. She was placed on several courses of oral antibiotics and Decadron in the outpatient setting with no relief. Over the course of 2 weeks, which her last visit to the Urgent Care actually was on 02/22/18, so between 02/22/18 and up until the date of admission, the patient started to get a severe headache. She had some nausea. She was having trouble communicating. She had some expressive aphasia, answering questions, only saying I do not know, I do not know, and becoming very confused. Ultimately, she was brought to the emergency department where she was worked up essentially for rule out meningitis. The patient was empirically started on antibiotics pending her lumbar puncture. CSF analysis revealed cloudy fluid with a white blood cell count of 805, red blood cells of 711, 40 neutrophils, lymphocytes 33 , glucose 45, and protein of 251. CT of the brain showed increased density with basilar artery consistent with either calcified plaque or thrombus. Air fluid levels were normal. CTA of the head and neck revealed no significant angiographic abnormalities. Essentially, the patient was started on broad- spectrum antibiotics as well as antivirals, pending some viral studies. Ultimately, the patient's PCR for HSV2 came back positive. She was discontinued on anti-infectives and continued on weight based acyclovir. The patient had PICC line insertion on 03/05/18 and in anticipation of discharge to home on home infusion of acyclovir for a total of 14 days. These recommendations were as per Dr. Vera, infectious disease specialist based on the patient's continued symptoms. Also of note, the patient did have a throat culture that showed pseudomonas; however, she currently has no white count. She still does have a sore throat; however, it does appear to be herpetic lesions in the throat rather than appearing to be bacterial at this time. In any case, the patient was treated empirically with antibiotics and antivirals; however, antibiotics will be discontinued at discharge. DISCHARGE DIAGNOSES: 1. Altered mental status secondary to herpes simplex virus meningitis and encephalitis. 2. Pharyngitis likely also secondary to herpes simplex virus rather than pseudomonas. 3. Hypertension, controlled on diltiazem. DISCHARGE MEDICATIONS: Include: 1. Vitamin D3 100 units daily. 2. Xanax 0.5 mg p.o. 3 times a day as needed. 3. Trazodone 150 mg daily nightly. 4. Diltiazem 120 mg 3 times a day. 5. She will be placed on Percocet 5/325 one tablet q.6 hours as needed for pain. 6. Finally, acyclovir 520 mg t.i.d. for 14 days. REVIEW OF SYSTEMS: A 10-point review of systems is negative except as noted in the HPI above. PHYSICAL EXAMINATION: The patient is alert, well-appearing, in no acute distress. Vital signs are blood pressure 112/69, heart rate 72, respiratory rate 18, O2 saturation 96% on room air with a temperature of 98.3. HEENT: The patient is atraumatic, normocephalic. PERRLA with nonicteric sclerae. Oral mucosa is moist. Oropharyngeal region is erythematous with streaky white patches bilaterally across the tonsils. No diffuse edema noted and she has no dysphagia. Neck is supple, nontender. No JVD noted. No carotid bruit auscultated. Cardiovascular: S1, S2 present. No murmurs, gallops or rubs noted. Lungs are clear bilaterally to auscultation with no recent rhonchi or rales. Abdomen is soft, nontender, nondistended. Positive bowel sounds in all 4 quadrants. was deferred. Musculoskeletal: There is no clubbing. No cyanosis. No edema. She has +2 distal pulses palpable. Brisk cap refill at full range of motion and steady gait. Neurologic : She is currently grossly intact with no focal deficits. She is alert and oriented x3. Psychiatric: She is cooperative and appropriate, although can be anxious at times. LABORATORY DATA: WBC 6.4, RBC is 3.98, hemoglobin 13, hematocrit 36, platelets 291. Sodium 136, potassium 3.9, chloride 103, CO2 29, BUN 8, creatinine 0.67, GFR is 88.9, glucose 96, calcium 8.3, magnesium 1.9, CRP was 120.92, total protein 6.0, albumin 2.9, globulin 3.1, procalcitonin 0.1. Most recent vancomycin trough was 15.6. Vancomycin is currently being stopped. CSF findings as above. Also of note, cryptococcus and HSV1 were negative. Urinalysis showed 1+ protein, 1+ ketones, 1+ blood, some rbc's, and squamous epithelial cells. HIV 1 and 2 were nonreactive. The rest of her toxicology testing were also negative. DISPOSITION: The patient is receiving PICC line today. She did have midline insertion; however, one midline failed and the other one was already several days old and will not be able to last for the 2-week infusion. So, she had a PICC line inserted today. [facility] will come in to teaching with the patient in the morning in her home. So, the patient will be discharged to home the morning of 03/06/18 at 7 a.m. and time for her 8:30 a.m. [facility]. FOLLOWUP: The patient is instructed to follow up with Dr. Jayson Vera after her infusion is complete or if she has any changes, also instructed to follow up with her primary care provider, who she states is going to be Dr. Henriquez or somebody from [facility]. The patient should have labs drawn. This [facility] through [facility]. She will have weekly, I think CBC and BMP as per Infectious Disease. ACTIVITY: As tolerated. DIET: As tolerated. NIKO BROOKS, MURIEL [id number]/CPS #: [id number] [facility]ITAL[facility]
[2018-03-06] MEDS: ACYCLOVIR IVPB SCH (06:25)
[2018-03-06] MEDS: NS 0.9% IVPB SCH (06:25)
[2018-03-06] MEDS: Heparin VIAL(*) 5000 UNITS/ML VIAL (FIVE THOUSAND) SUBCUT SCH (06:26)
[2018-03-06 08:33] VITALS: BP 98/60
[2018-03-06] MEDS: Cholecalciferol TAB* 1000 UNITS PO SCH (08:51)
[2018-03-06] MEDS: Diltiazem TAB* 60 MG PO SCH (08:51)
[2018-03-06] MEDS: Omeprazole CAP* 20 MG PO SCH (08:51)
[2018-03-06] MEDS ORDERED: Vancomycin Trough Check NOTE FOLLOW UP ONE (12:00)
== END 2018-03-06 09:15 | disposition home or self-care (01) | DRG 50 ==
LOC: ED 12:39 → MED 20:29 → ICU 03-01 14:05 → MEDTELE 03-02 12:30 → MED 03-04 16:45
PROVIDERS: ADMIT Hospitalist; ATTEND Internal Medicine
PROC: 009U3ZX Drainage of Spinal Canal, Percutaneous Approach, Diagnostic (ICD-10-PCS; principal; 2018-02-28)
PROC: 02HV33Z Insertion of Infusion Device into Superior Vena Cava, Percutaneous Approach (ICD-10-PCS; 2018-02-28)
PROC: 4A10X4Z Monitoring of Central Nervous Electrical Activity, External Approach (ICD-10-PCS; 2018-02-28)
DX: B00.4 Herpesviral encephalitis (principal); B00.3 Herpesviral meningitis; G93.40 Encephalopathy, unspecified; I10 Essential (primary) hypertension; F17.210 Nicotine dependence, cigarettes, uncomplicated; F41.9 Anxiety disorder, unspecified; R00.2 Palpitations; J02.8 Acute pharyngitis due to other specified organisms; B96.5 Pseudomonas (aeruginosa) (mallei) (pseudomallei) as the cause of diseases classified elsewhere; Z80.3 Family history of malignant neoplasm of breast; Z90.710 Acquired absence of both cervix and uterus; Z90.49 Acquired absence of other specified parts of digestive tract
CPT/HCPCS: 36415; 70450; 70496; 70498; 70540; 70551; 71045; 74018; 80048; 80053; 80202; 80320; 81003; 81015; 82140; 82565; 82945; 83605; 83735; 84145; 84157; 84484; 84520; 85025; 85027; 86140; 86703; 87040; 87070; 87086; 87205; 87476; 87529; 87641; 87798; 87899; 89051; 93005; 95816; 99285; A9270-GY; C1751; G0480; J0133; J0290; J0692; J0696; J1644; J1885; J2270; J2405; J3370; J3475; J3480; Q9967

== ENCOUNTER 2018-10-29 16:46 | Emergency (ER) | payer MEDICARE, BC ==
[2018-10-29 17:24] VITALS: BP 107/74
--- NOTE | 2018-10-29 17:28 | UC ---
Ear Complaint HPI - HPI Summary HPI Summary: 62 yo female presents with LEFT ear and left throat pain intermittently for the last month. Over the last 2-3 days has seemed more constant. She tells me that last year she developed meningitis from a throat infection - therefore any time she gets a worsening sore throat she gets concerned. Has also had somewhat of a runny nose. She has not been taking anything OTC for her symptoms. She is tolerating po well. Denies fever, chills, cough, SOB, rash, headache, or dizziness. No change in hearing out of her left ear. 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 Onset/Duration: Gradual Onset Severity Initially: Moderate Severity Currently: Moderate Pain Intensity: 7 Pain Scale Used: 0-10 Numeric - Allergies/Home Medications Allergies/Adverse Reactions: Allergies Allergy/AdvReac Type Severity Reaction Status Date / Time No Known Allergies Allergy Verified 10/29/18 17:24 PMH/Surg Hx/FS Hx/Imm Hx - Additional Past Medical History Additional PMH: Meningitis Psychological History: Anxiety - Surgical History Surgical History: Yes Surgery Procedure, Year, and Place: LUMPECTOMY, HYSTERECOMY, FX TO LEG WITH HARDWARE, GALLBLADDER - Family History Known Family History: Positive: Other - breast CA Negative: Diabetes - Social History Lives: With Family Alcohol Use: None Substance Use Type: None Smoking Status (MU): Former Smoker Type: Cigarettes Amount Used/How Often: 5 cig/day Length of Time of Smoking/Using Tobacco: 40 Have You Smoked in the Last Year: No - Immunization History Most Recent Influenza Vaccination: 2017 Most Recent Pneumonia Vaccination: unknown Review of Systems All Other Systems Reviewed And Are Negative: Yes Constitutional: Positive: Negative Skin: Positive: Negative Eyes: Positive: Negative ENT: Positive: Sore Throat, Ear Ache Respiratory: Positive: Negative Cardiovascular: Positive: Negative Gastrointestinal: Positive: Negative Neurovascular: Positive: Negative Neurological: Positive: Negative Psychological: Positive: Negative Physical Exam - Summary Physical Exam Summary: GENERAL: NAD. WDWN. No pain distress. SKIN: No rashes, sores, lesions, or open wounds. HEENT: Head: AT/NC Eyes: EOM intact. Conjunctiva clear without inflammation or discharge. Ears: Hearing grossly normal. TMs intact, no bulging, erythema, or edema. B/L TMs with mild clear fluid behind. Nose: Nasal mucosa pink and moist. NTTP maxillary and frontal sinus. Positive post nasal drip. Throat: Posterior oropharynx without exudates, erythema, or tonsillar enlargement. Uvula midline. NECK: Supple. Nontender. No lymphadenopathy. CHEST: CTAB. No r/r/w. No accessory muscle use. Breathing comfortably and in no distress. CV: RRR. Without m/r/g. Pulses intact. Cap refill <2seconds NEURO: Alert. PSYCH: Age appropriate behavior. Triage Information Reviewed: Yes Vital Signs: Initial Vital Signs Temp 98.0 F 10/29/18 17:18 Pulse 79 10/29/18 17:18 Resp 18 10/29/18 17:18 BP 107/74 10/29/18 17:18 Pulse Ox 96 10/29/18 17:18 Vital Signs Reviewed: Yes Ear Complaint Course/Dx - Course Course Of Treatment: Suspect allergies/serous otitis media. Given her history of meningitis - she prefers to be on anbx at this time, therefore will rx for doxycycline, flonase, and claritin. Advised to f/u if symptoms worsen or do not improve. - Differential Dx/Diagnosis Provider Diagnosis: Serous otitis media Discharge - Sign-Out/Discharge Documenting (check all that apply): Patient Departure All imaging exams completed and their final reports reviewed: No Studies - Discharge Plan Condition: Stable Disposition: HOME Prescriptions: DOXYcycline CAP(*) [DOXYcycline 100MG CAP(*)] 100 mg PO BID #14 cap Fluticasone NASAL SPRAY 50MCG* [Flonase NASAL SPRAY 50MCG*] 2 spray BOTH NARES DAILY #1 btl Loratadine [Claritin] 10 mg PO DAILY #30 tablet Patient Education Materials: Serous Otitis Media (ED) Referrals: Stefanie Bowers MD [Primary Care Provider] - Additional Instructions: If you develop a fever, shortness of breath, chest pain, new or worsening symptoms - please call your PCP or go to the ED. - Billing Disposition and Condition Condition: STABLE Disposition: Home
== END 2018-10-29 17:41 | disposition home or self-care (01) ==
LOC: UCEAST 16:46
DX: H65.92 Unspecified nonsuppurative otitis media, left ear (principal); J02.9 Acute pharyngitis, unspecified; F41.9 Anxiety disorder, unspecified; Z86.61 Personal history of infections of the central nervous system; Z87.891 Personal history of nicotine dependence
CPT/HCPCS: 99212; G0463